=== PATIENT | male | born 1975 | race Caucasian/White ===

== ENCOUNTER 2020-01-17 09:57 | Outpatient (CLI) | payer OTHER, SELFPAY ==
--- NOTE | ~2020-01-17 | US_ITS ---
EXAMINATION: US venous doppler LE RT DATE: 01/17/2020 10:31 INDICATION: Right lower limb pain. TECHNIQUE: Grayscale ultrasound images without and with compression and Doppler ultrasound images of the right lower extremity veins were obtained. COMPARISON: None. FINDINGS: The visualized portions of right common femoral vein, profunda (deep) femoral vein, femoral vein, pop liteal vein, peroneal veins, posterior tibial veins, and greater saphenous vein outflow are patent. IMPRESSION: 1. No deep venous thrombosis. Reviewed, dictated and finalized at location A.
== END 2020-01-17 09:58 | disposition home or self-care (01) ==
LOC: ANHIMG 09:58
PROVIDERS: PCP Family Medicine; Visit Provider Family Medicine
DX: M79.661 Pain in right lower leg (principal)
CPT/HCPCS: 93971

== ENCOUNTER 2022-08-10 14:31 | Inpatient (IN) | payer OTHER, SELFPAY ==
[2022-08-10] VITALS (10 sets, daily range): BP systolic 136–142; BP diastolic 78–100; PULSE 84–125; RESP 18–24; TEMP 36.5–36.8; O2SAT 99–100; BMI 34.2
--- NOTE | ~2022-08-10 | XR_ITS ---
Clinical Indication: Shortness of breath PA and lateral views of the chest: Comparison: 12/27/2017 Findings: The lungs are clear, without evidence of focal consolidation or pleural effusion. Cardiome diastinal silhouette is within normal limits. Bones and soft tissues are unremarkable. Impression: Normal chest. Reviewed, dictated and finalized at [facility]. Impression: Normal chest.
--- NOTE | 2022-08-10 14:46 | ECG_ITS ---
Measurements Intervals [place] Rate: 115 P: 66 MI: 142 QRS: 31 QRSD: 102 T: 40 QT: 323 QTc: 448 Interpretive Statements SINUS TACHYCARDIA DELAYED PRECORDIAL R/S TRANSITION BASELINE WANDER- V1 ABNORMAL ECG NO PREVIOUS ECG AVAILABLE FOR COMPARISON Electronically Signed On 08-10-2022 20:20:22 CDT by Darrel Salguero D.O.
[2022-08-10 15:12] LABS: Basophils Absolute Auto 0.1 K/mm3 (0.0-0.1); Basophils Percent Auto 0.5 % (0.2-1.2); Hematocrit 47.6 % (42.0-52.0); Hemoglobin 16.9 g/dL (14.0-18.0); Immature Granulocyte Absolute 0.05 K/mm3 (0.00-0.031); Immature Granulocyte Percent A 0.5 % (0-0.5); Lymphocytes Percent Auto 7.9 % (18.3-44.2); Mean Corpuscular HGB Conc 35.5 g/dl (32-36); Mean Corpuscular Hemoglobin 30.1 pg (26-34); Mean Corpuscular Volume 84.7 fl (80-100); Mean Platelet Volume 10.2 fl (7.4-10.4); Monocytes Absolute Auto 1.1 K/mm3 (0.1-0.6); Monocytes Percent Auto 10.5 % (2.6-8.5); Neutrophils Absolute Auto 8.1 K/mm3 (1.3-6.7); Neutrophils Percent Auto 80.6 % (45.5-73.1); Platelet Count Result 300 k/mm3 (150-375); Red Blood Count 5.62 M/mm3 (4.6-6.20); Red Cell Distribution Width 12.9 % (11.5-14.5); White Blood Count 10.1 K/mm3 (4.5-10.0)
[2022-08-10 15:24] LABS: Alanine Aminotransferase 35 U/L (6-50); Albumin Level 4.7 g/dL (3.5-5.1); Alkaline Phosphatase 134 U/L (38-126); Aspartate Amino Transferase 19 U/L (17-59); Bilirubin,Total 0.9 mg/dL (0.2-1.3); Blood Urea Nitrogen 20 mg/dL (9-20); Calcium 9.9 mg/dL (8.4-10.2); Carbon Dioxide < 5 mmol/L (22-30); Chloride 102 mmol/L (98-107); Estimated CRCL calculation 93 ml/min; Estimated Glomerular Filt Rate > 60; Glucose 460 mg/dL (65-110); Potassium 4.2 mmol/L (3.4-5.0); Sodium 131 mmol/L (137-145)
[2022-08-10 15:48] LABS: Influenza A QL RT-PCR Negative (Negative); Influenza B QL RT-PCR Negative (Negative); SARS-CoV-2 RNA PCR Negative
--- NOTE | 2022-08-10 15:58 | ED.GENADULT ---
HPI - General Adult General Chief complaint: Unspecified Stated complaint: SOB, n/v, illness Time Seen by Provider: 08/10/22 15:42 Source: RN notes reviewed History of Present Illness HPI narrative: Patient presents emergency department from home for not feeling well. Patient states he has not been feeling well for approximately the past 4 to 5 days. States has been having nausea and vomiting for that time and is unable to keep anything down. States has been associated with symptoms of an upper respiratory infection with a cough this been nonproductive as well as rhinorrhea and a mild sore throat. Patient denies having any fevers or chills he denies any chest pain shortness of breath or abdominal pain. States that he does have an abscess down in his left thigh that has been present for the past 3 days he states he tried popping it yesterday with a needle with some purulent drainage but states it is still present and tender states that he does not have a history of diabetes Related Data Home Medications Medication Instructions Recorded Confirmed vitamin B complex (B 1 tablet PO DAILY 01/17/20 12/17/20 Complex-Vitamin B12 tablet) Allergies Allergy/AdvReac Type Severity Reaction Status Date / Time No Known Allergies Allergy Unknown Verified 08/10/22 14:32 Review of Systems Review of Systems: Gen.: Denies fevers or chills ENT: reports nasal congestion Respiratory: Denies shortness of breath or cough CV: Denies chest pain or palpitations GI: Denies abdominal pain or diarrhea. Reports nausea and vomiting denies burning, urgency, frequency or hematuria Musculoskeletal: Denies back pain or muscle pain Neuro: reports generalized weakness Skin: Reports abscess Except as documented, all other systems reviewed and negative [facility] Past Medical History Medical History Bilateral knee pain Carpal tunnel syndrome of left wrist Dyslipidemia Effusion, right knee Essential (primary) hypertension Hypertension Insomnia Knee effusion, right Left knee DJD Left shoulder pain Right knee DJD Rotator cuff tear Unspecified osteoarthritis, unspecified site Vertigo Surgical History Surgical History History of arthroplasty of left knee History of hand surgery index finger FB removal History of lateral meniscus repair of left knee (~2015) History of shoulder surgery (~2005) right Family History Family History Mother No family history of diabetes mellitus Other Diabetes mellitus Family history of pancreatic cancer Hypertension Social History Social History (Updated 08/10/22 @ 19:31 by Dafne Edwards NP) Social History: one son Smoking status: Never smoker Second hand tobacco smoke exposure: No Alcohol intake: current Alcohol use details: consumes 4 beers consumed social Substance use: never Substance use type: does not use Gender identity (if verbalized by the patient): Male Exam Narrative: APPEARANCE: No acute distress, nontoxic, resting in bed EYES: EOMI HEENT: Normocephalic, atraumatic, oral mucosa dry RESPIRATORY: No respiratory distress Clear to auscultation bilaterally with no rhonchi wheezing or rales. CARDIOVASCULAR: Regular rate and rhythm without murmurs rubs or gallops. ABDOMINAL: Soft, nontender, nondistended, no rebound or guarding MUSCULOSKELETAl: Moves all extremities. No clubbing, cyanosis or edema. NEURO: Awake and alert. Following commands, speech normal, no focal deficits SKIN:: Warm, dry. The left inner upper thigh has a's abscess is present with mild drainage from inferior opening there is purulent in nature with fluctuance and surrounding erythema erythema does not extend into the perineum or the scrotum and only stays in the medial thigh PSYCHIATRIC: Normal affect/mood, Course Course Emergency C
[2022-08-10] MEDS: SODIUM CHLORIDE 0.9% IV 1,000 ML 999 ML IV CONT ×3 (16:06→18:43)
[2022-08-10 16:23] LABS: Alveolar/Arterial O2 Gradient 4.2 mmHg; Base Excess ABG -19.8 mEq/l (+/-2.0); Carboxyhemoglobin 1.2 % THb (0-2.0); Fractional Inspired Oxygen 21 %; HCO3 ABG 6.1 mEq/l (22.0-26.0); Methemoglobin ABG 0.5 %THb (0-1.5); Oxygen Content ABG 22.3 %vol (16.0-22.0); Oxygen Saturation ABG 97.8 % (95.0-100.0); Oxyhemoglobin 96.3 % THb (90.0-100.0); PO2 ABG 125.4 mmHg (80.0-100.0); PO2 FiO2 Ratio Arterial Blood 5.97 %; Total Hemoglobin 16.4 g/dL (12.0-18.0)
[2022-08-10] MEDS: CEFEPIME 2 GM/NS 50 ML 2 GM/50 ML BAG IVPB (16:24)
[2022-08-10 16:29] LABS: Device ROOM AIR; Modified Allen's Test Pass; PCO2 ABG 16.8 mmHg (35.0-45.0); Site Drawn RIGHT RADIAL; pH ABG 7.177 (7.350-7.450)
[2022-08-10 17:03] LABS: Lactic Acid Reflex 2.2 mmol/L (0.7-2.0); Magnesium 2.4 mg/dL (1.6-2.3); Phosphorus 4.6 mg/dL (2.5-4.5)
[2022-08-10] MEDS: metroNIDAZOLE 500 MG/ISO 100ML 500 MG/100 ML BAG 100 MG IVPB ×2 (17:11→23:09)
[2022-08-10 17:21] LABS: Appearance Urine Clear (Clear); Bacteria Urine None Seen /hpf; Bilirubin Urine Negative (Negative); Blood Urine 1+ (Negative); Color Urine Yellow (Yellow); Glucose Urine UA 3+ mg/dL (Negative); Hyaline Casts Urine Present /lpf; Ketones Urine 3+ mg/dL (Negative); Leukocyte Esterase Ur Negative LEU/UL (Negative); Need Manual Microscopic Reviewed; Nitrate Urine Negative (Negative); Protein Urine 2+ mg/dL (Negative); RBC Urine 0-2 /hpf (0-2); Specific Grav Ur 1.028 (1.001-1.035); Squamous Epithelial Cell Urine Few /hpf (Few); Urobilinogen Urine 0.2 mg/dL (<2.0); WBC Urine 0-5 /hpf; pH Urine 5.5 (5.0-9.0)
[2022-08-10] MEDS: INSULIN HUMAN REGULAR (*BKC) 100 UNITS in SODIUM CHLORIDE 0.9% IV 99 ML 8 UNITS IV CONT (17:22)
[2022-08-10 17:23] LABS: Add Urine Microscopic? YES
[2022-08-10 18:37] LABS: Glucose Point of Care 353 mg/dl (65-105)
[2022-08-10 18:37] LABS: Glucose Point of Care 406 mg/dl (65-105)
[2022-08-10 18:51] LABS: Anion Gap 18 mmol/L (8-16); Blood Urea Nitrogen 20 mg/dL (9-20); Calcium 8.8 mg/dL (8.4-10.2); Carbon Dioxide 8 mmol/L (22-30); Chloride 108 mmol/L (98-107); Estimated CRCL calculation 93 ml/min; Estimated Glomerular Filt Rate > 60; Glucose 327 mg/dL (65-110); Sodium 134 mmol/L (137-145)
[2022-08-10 18:54] LABS: Hemoglobin A1C 12.1 % (<5.7)
[2022-08-10 19:14] LABS: Beta-Hydroxybutyrate/Acetoacetate 7.57 mmol/L (0.02-0.27)
--- NOTE | 2022-08-10 19:24 | PM.IMHP ---
H&P: HPI History of Present Illness Date/Time: 08/10/22 19:24 Chief Complaint: shortness of breath, nausea vomiting Narrative: the patient came to the emergency room from home due to not feeling well. He has been sick for approximately 4 5 days. The patient has been having nausea vomiting has not been able to keep anything down the patient had upper respiratory infection with cough. Denies any fever chills. The patient stated he has an abscess to the left inner thigh. That is been there for 3 days. He tried popping yesterday with the needle was some purulence a but is swage tender. His no previous history of having diabetes. WBC 10.1. neutrophil 80.6.abg 7.177 CO2 16.8 PO2 125.4. Bicarb 6.1. Sodium 134. blood sugar 353 and 241. lactic 2.2 and now 1.5. patient's beta hydroxybutyrate acetoacetate. influenza a B and COVID negative. The abscess was I&D in the emergency per ED provider. the wound was packed with iodoform and surgery has been consulted. The radioisotope technician has been consulted for the DKA. The patient was placed on an insulin drip. The patient was started on IV fluids he was given 2 L in the emergency room he started on cefepime, Flagyl and vancomycin. The patient is being admitted to inpatient status on the date of service of 08/10/2022 Review of Systems Review of Systems: see HPI All systems reviewed & are unremarkable except as noted in HPI and below Constitutional: Constitutional: Reports as per HPI and Reports no additional constitutional complaints Eyes: Eyes: Reports as per HPI and Reports no additional eye complaints ENT: Reports system reviewed and no additional complaints, except as documented and Reports Normal hearing present Cardiovascular: Cardiovascular: Reports no additional cardiovascular complaints Respiratory: Respiratory: Reports no additional respiratory complaints and Reports no additional respiratory complaints Gastrointestinal: Gastrointestinal: Reports as per HPI and Reports no additional gastrointestinal complaints Musculoskeletal: Musculoskeletal: Reports no additional musculoskeletal complaints Integumentary/Breasts: Skin/Breast: Reports system reviewed and no additional complaints, except as docu and Reports as per HPI Neurologic: Reports system reviewed and no additional complaints, except as documented, Reports as per HPI and Reports Normal hearing present Psychiatric: Psychiatric: Reports no additional psychiatric complaints and Reports as per HPI Endocrine: Endocrine: Reports no additional endocrine complaints Hematologic/Lymphatic: Hematologic/Lymphatic: Reports no additional hematologic/lymphatic complaints Allergic/Immunologic: Allergic/Immunologic: Reports no additional allergic/immunologic complaints [facility] Past Medical History Medical History Bilateral knee pain Carpal tunnel syndrome of left wrist Dyslipidemia Effusion, right knee Essential (primary) hypertension Hypertension Insomnia Knee effusion, right Left knee DJD Left shoulder pain Right knee DJD Rotator cuff tear Unspecified osteoarthritis, unspecified site Vertigo Surgical History Surgical History History of arthroplasty of left knee History of hand surgery index finger FB removal History of lateral meniscus repair of left knee (~2015) History of shoulder surgery (~2005) right Family History Family History Mother Diabetes mellitus Family history of pancreatic cancer Hypertension Father Prostate carcinoma Social History Social History (Updated 08/10/22 @ 23:46 by Dafne Edwards NP) Social History: he lives with hiswife. He had one son . 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 Code status full code Smoking status: Never smoker Second hand tobacco smoke exposure: No
--- NOTE | 2022-08-10 19:43 | PC.NURSE ---
This patient, Jerald Mike, was admitted to Intensive Care Unit-6. Patient/family oriented to hospital policies and general routines including ID bracelet, bed and alarms, visiting hours, pain management, procedures, bathroom and other care routines, personal items, smoking policy, room service/diet, and visiting hours. Information on how to activate the Rapid Response Team has been discussed. Patient/Family are encouraged to report perceived risks to care and to ask questions if they do not understand what they are told or what they should do.
[2022-08-10 19:49] LABS: Reflex Lactic Acid Yes or No Add Lactic
[2022-08-10] MEDS: SODIUM CHLORIDE 0.9% IV 1,000 ML 150 ML IV CONT (20:21)
[2022-08-10] MEDS: FAMOTIDINE 20 MG/2 ML VIAL IV PUSH (20:25)
[2022-08-10 20:39] LABS: Glucose Point of Care 301 mg/dl (65-105)
[2022-08-10] MEDS: traZODone HCL 50 MG TABLET PO (21:19)
[2022-08-10 21:29] LABS: Glucose Point of Care 313 mg/dl (65-105)
[2022-08-10 22:10] LABS: Glucose Point of Care 248 mg/dl (65-105)
[2022-08-10 22:30] LABS: Lactic Acid 1.5 mmol/L (0.7-2.0)
[2022-08-10 22:31] LABS: Anion Gap 14 mmol/L (8-16); Blood Urea Nitrogen 18 mg/dL (9-20); Calcium 8.6 mg/dL (8.4-10.2); Carbon Dioxide 10 mmol/L (22-30); Chloride 110 mmol/L (98-107); Estimated CRCL calculation 127 ml/min; Estimated Glomerular Filt Rate > 60; Glucose 261 mg/dL (65-110); Potassium 3.5 mmol/L (3.4-5.0); Sodium 134 mmol/L (137-145)
[2022-08-10] MEDS: KCL 20 MEQ/D5/0.45% SOD CHL 1,000 ML 150 ML IV CONT (23:09)
[2022-08-10 23:16] LABS: Glucose Point of Care 241 mg/dl (65-105)
[2022-08-11] VITALS (66 sets, daily range): BP systolic 104–132; BP diastolic 69–77; PULSE 74–104; RESP 16–25; TEMP 36.8–37.7; O2SAT 97–100; BMI 35.6
[2022-08-11 00:13] LABS: Glucose Point of Care 184 mg/dl (65-105)
[2022-08-11 01:11] LABS: Glucose Point of Care 188 mg/dl (65-105)
[2022-08-11] MEDS: INSULIN HUMAN REGULAR (*BKC) 100 UNITS in SODIUM CHLORIDE 0.9% IV 99 ML 13.6 UNITS IV CONT (02:20)
[2022-08-11 02:24] LABS: Glucose Point of Care 196 mg/dl (65-105)
[2022-08-11 02:43] LABS: Anion Gap 9 mmol/L (8-16); Blood Urea Nitrogen 16 mg/dL (9-20); Calcium 8.8 mg/dL (8.4-10.2); Carbon Dioxide 13 mmol/L (22-30); Chloride 109 mmol/L (98-107); Estimated CRCL calculation 127 ml/min; Estimated Glomerular Filt Rate > 60; Glucose 186 mg/dL (65-110); Potassium 3.3 mmol/L (3.4-5.0); Sodium 131 mmol/L (137-145)
[2022-08-11 03:13] LABS: Glucose Point of Care 193 mg/dl (65-105)
[2022-08-11 04:22] LABS: Glucose Point of Care 187 mg/dl (65-105)
[2022-08-11] MEDS: CEFEPIME 2 GM/NS 50 ML 2 GM/50 ML BAG IVPB ×2 (05:27→17:03)
[2022-08-11] MEDS: metroNIDAZOLE 500 MG/ISO 100ML 500 MG/100 ML BAG 100 MG IVPB ×3 (06:00→21:31)
[2022-08-11] MEDS: VANCOMYCIN HCL 1,500 MG in SODIUM CHLORIDE 0.9% IV 500 ML 250 MG IVPB ×2 (06:00→18:48)
[2022-08-11 06:15] LABS: Glucose Point of Care 189 mg/dl (65-105)
[2022-08-11 06:15] LABS: Glucose Point of Care 170 mg/dl (65-105)
[2022-08-11 06:52] LABS: Anion Gap 8 mmol/L (8-16); Blood Urea Nitrogen 16 mg/dL (9-20); Calcium 8.8 mg/dL (8.4-10.2); Carbon Dioxide 14 mmol/L (22-30); Chloride 112 mmol/L (98-107); Estimated CRCL calculation 150 ml/min; Estimated Glomerular Filt Rate > 60; Glucose 154 mg/dL (65-110); Sodium 134 mmol/L (137-145)
[2022-08-11] MEDS: KCL 20 MEQ/D5/0.45% SOD CHL 1,000 ML 150 ML IV CONT (06:54)
[2022-08-11 07:00] LABS: Glucose Point of Care 144 mg/dl (65-105)
[2022-08-11] MEDS: VITAMIN B COMPLEX CAPSULE 1 CAP PO (08:15)
[2022-08-11] MEDS: ASCORBIC ACID 125 MG TABLET BY MOUTH (08:15)
[2022-08-11] MEDS: ENOXAPARIN 40 MG/0.4 ML SYRINGE SUB-Q (08:15)
[2022-08-11] MEDS: CHOLECALCIFEROL 400 UNITS TABLET (VIT D) PO (08:15)
--- NOTE | 2022-08-11 08:20 | WPDCNINT ---
Assessment and Plan Assessment and plan (1) DKA (diabetic ketoacidosis): Code(s): E11.10 - Type 2 diabetes mellitus with ketoacidosis without coma Status: Acute Assessment and Plan: Patient presented with and was given iVF bolus and started on infusion Patient was also started on insulin infusion and Q1H glucose monitoring serial labs were performed At this time patient's anion gap has closed but he still on high rate of insulin. His potassium level is low I will hold his insulin drip for few hours, replace potassium and then restart insulin drip Change dextrose IV fluids to half normal saline Advance diet I will administer Lantus Once the insulin requirement is down to a more manageable rate on the insulin infusion, I will transition him to subcutaneous insulin Consult dietitian and music educator (2) Abscess of left thigh: Code(s): L02.416 - Cutaneous abscess of left lower limb Status: Acute Assessment and Plan: Status post I&D in ER Blood culture sent and pending Surgery has been consulted Continue vancomycin cefepime and Flagyl (3) Nausea and vomiting: Code(s): R11.2 - Nausea with vomiting, unspecified Status: Acute Assessment and Plan: Resolved P.r.n. Zofran Advance diet (4) Electrolyte abnormality: Code(s): E87.8 - Other disorders of electrolyte and fluid balance, not elsewhere classified Status: Acute Assessment and Plan: Potassium level is low at 3.0 P.o. and IV replacement ordered Change IV fluids to half-normal saline with potassium Continue monitoring and replacement as needed Asifctmolly lytes (5) Dyslipidemia: Code(s): E78.5 - Hyperlipidemia, unspecified Status: Acute Assessment and Plan: History of dyslipidemia but not any treatment I will check a fasting lipid profile tomorrow morning (6) Essential (primary) hypertension: Code(s): I10 - Essential (primary) hypertension Status: Acute Assessment and Plan: Patient mentions history of hypertension but currently not on treatment Blood pressure in controlled range at this time Monitor closely and treat if needed Plan DVT prophylaxis -Lovenox Stress ulcer prophylaxis -patient is on Pepcid Nutrition -start diabetic diet Code Status - Full Code Total Critical Care Time - 30 minutes Due to a high probability of clinically significant, life threatening deterioration, the patient required my highest level of preparedness to intervene emergently and I personally spent this critical care time directly and personally managing the patient. This critical care time included obtaining a history; examining the patient; pulse oximetry; ordering and review of studies; arranging urgent treatment with development of a management plan; evaluation of patient's response to treatment; frequent reassessment; and discussions with other providers. It was exclusive of separately billable procedures and treating other patients and teaching time. Please see Assessment and Plan section and the rest of the note for further information on patient assessment and treatment Body Shop Mechanic Consult Note Consult date: 08/11/22 Reason for consult: DKA, abscess HPI: Jerald Mike is a 47 year old male with past medical history of hypertension dyslipidemia but not on any medications presented to ER yesterday with chief complaint of nausea and vomiting from last 3-4 days. Patient states that he developed nausea and vomiting approximately 4 days ago and has not been able to keep any food or liquid down. He denies any abdominal pain and no blood in his vomitus. He denies any fever. He states since yesterday he was feeling short of breath on exertion and was heavy breathing. No chest pain. No diarrhea dysuria hematuria hematochezia or melena. He states that he developed this abscess 3 days ago on inside of his thigh. He states that he has had small abscess in the past which spontaneou
[2022-08-11] MEDS: IBUPROFEN 400 MG TABLET 800 MG PO ×2 (08:23→17:07)
[2022-08-11] MEDS: POTASSIUM CHLORIDE 20 MEQ TABLET 40 MEQ PO ×3 (08:24→21:20)
[2022-08-11] MEDS: INSULIN GLARGINE (*BKC) 100 UNITS/ML 30 UNITS SUB-Q ×2 (08:24→20:19)
[2022-08-11 08:30] LABS: Glucose Point of Care 168 mg/dl (65-105)
[2022-08-11] MEDS: KCL 20 MEQ/0.45% NS 1,000 ML 100 ML IV CONT ×2 (09:03→18:50)
[2022-08-11] MEDS: POTASSIUM CHLORIDE INJ 40 MEQ in SODIUM CHLORIDE 0.9% IV 500 ML 130 MEQ IVPB ×2 (09:03→21:31)
[2022-08-11 09:20] LABS: Glucose Point of Care 174 mg/dl (65-105)
[2022-08-11 09:24] LABS: Hematocrit 33.2 % (42.0-52.0); Hemoglobin 11.9 g/dL (14.0-18.0); Mean Corpuscular HGB Conc 35.8 g/dl (32-36); Mean Corpuscular Hemoglobin 30.7 pg (26-34); Mean Corpuscular Volume 85.8 fl (80-100); Platelet Count Result 154 k/mm3 (150-375); Red Blood Count 3.87 M/mm3 (4.6-6.20); White Blood Count 5.5 K/mm3 (4.5-10.0)
[2022-08-11 09:33] LABS: Anion Gap 6 mmol/L (8-16); Blood Urea Nitrogen 15 mg/dL (9-20); Calcium 8.3 mg/dL (8.4-10.2); Carbon Dioxide 15 mmol/L (22-30); Chloride 108 mmol/L (98-107); Estimated CRCL calculation 150 ml/min; Estimated Glomerular Filt Rate > 60; Glucose 186 mg/dL (65-110); Potassium 3.3 mmol/L (3.4-5.0); Sodium 129 mmol/L (137-145)
[2022-08-11 10:07] LABS: Glucose Point of Care 207 mg/dl (65-105)
[2022-08-11 11:23] LABS: Glucose Point of Care 200 mg/dl (65-105)
--- NOTE | 2022-08-11 11:57 | PM.CNGS ---
Assessment and Plan Assessment and plan (1) Abscess of left thigh: Code(s): L02.416 - Cutaneous abscess of left lower limb Status: Acute Assessment and Plan: Left medial upper thigh abscess s/p I&D in the ER. Abscess cultures pending. This appears to be localized to the thigh with no extension to the perineum or scrotum. The opening is small with another small area that is open and draining near the incision. Still with purulent drainage today. Dr. Canada recommended for this area to be opened up further with incision and drainage of the left medial thigh abscess in the OR tomorrow. Description of the procedure, risks, benefits, and recovery/wound care were discussed in detail with the patient. He agrees to proceed. We will make him NPO after midnight and plan to add him onto the surgery schedule tomorrow. (2) DKA (diabetic ketoacidosis): Code(s): E11.10 - Type 2 diabetes mellitus with ketoacidosis without coma Status: Acute Assessment and Plan: New onset diabetes. educator senior clinical and dietitian consulted. Insulin drip/management per Tone Artist Apprentice and primary service. Likely became more uncontrolled due to the skin infection. (3) Electrolyte abnormality: Code(s): E87.8 - Other disorders of electrolyte and fluid balance, not elsewhere classified Status: Acute Assessment and Plan: Close monitoring by Tone Artist Apprentice with replacement as needed, continued lab monitoring. (4) Dyslipidemia: Code(s): E78.5 - Hyperlipidemia, unspecified Status: Acute Plan I have discussed the patient's case and plan of care with Dr. Canada. Thank you for allowing us to see the patient in consultation and we will continue to follow along with you. History of Present Illness Consult details Consult date: 08/11/22 Reason for consult: other (Left upper medial thigh abscess) Requesting physician: Lalito Awan DO Narrative: This is a 47-year-old male with a history of hypertension and dyslipidemia, but is not currently on any home medications as he has not seen a PCP in about 5 years. He presented to the ER yesterday with complaints of SOB, nausea and vomiting x 3-4 days. He has not been able to keep any food or liquids down. He denies fever or chills, but he does endorse having redness, swelling, and pain to his left medial upper thigh progressively worsening for about 1 month. He first noticed a small red bump and recently this has progressively gotten worse. He tried to drain this area with a needle prior to admission as he was having intermittent drainage when he would sit down. He also endorses shortness of breath over the past few days that was significantly worse yesterday, prompting him to come into the ER for evaluation. In the ED, he was found to have diabetic ketoacidosis. He has no known history of diabetes. His glucose was in the 400's. He was tachycardic in the ER with a heart rate of 125, but he was afebrile. His white blood cell count was 10,100 and is down to 5,500 today. He had mild hyponatremia with sodium of 131. Lactic acid 2.2 and down to 1.5 when repeated. On exam, he was found to have a left medial upper thigh abscess and underwent an I&D with local anesthetic by the ED physician. Cultures were sent and this was packed with iodoform packing. He was admitted to the ICU for DKA. Our service was consulted by the ED for the left medial thigh abscess. He is now seen in the ICU. He has remained afebrile. Prior to my evaluation, he was seen by Dr. Canada and his left thigh dressing was changed. He reports having previous small abscesses that have spontaneously drained at home and resolved without any further medical care. Review of Systems Review of Systems: All systems reviewed & are unremarkable except as noted in HPI and below Constitutional: Constitutional: Reports no additional constitutional complaints, Denies chills, Denies fatigue and Denies fever(s) Eyes: Eyes: Reports no additional eye c
[2022-08-11 12:19] LABS: Glucose Point of Care 292 mg/dl (65-105)
[2022-08-11 13:38] LABS: Glucose Point of Care 265 mg/dl (65-105)
[2022-08-11] MEDS: INSULIN HUMAN REGULAR (*BKC) 100 UNITS in SODIUM CHLORIDE 0.9% IV 99 ML 10.1 UNITS IV CONT (14:33)
[2022-08-11 14:44] LABS: Glucose Point of Care 262 mg/dl (65-105)
[2022-08-11 15:21] LABS: Anion Gap 4 mmol/L (8-16); Blood Urea Nitrogen 18 mg/dL (9-20); Calcium 8.2 mg/dL (8.4-10.2); Carbon Dioxide 16 mmol/L (22-30); Chloride 110 mmol/L (98-107); Estimated CRCL calculation 130 ml/min; Estimated Glomerular Filt Rate > 60; Glucose 237 mg/dL (65-110); Potassium 3.7 mmol/L (3.4-5.0); Sodium 130 mmol/L (137-145)
--- NOTE | 2022-08-11 16:05 | PCCCNOTE ---
On 08/11/22, the student, [Lurdes Barajas ], provided care and completed [facility] on this [facility]. I have reviewed the student's documentation and agree with the findings.
[2022-08-11 16:13] LABS: Glucose Point of Care 198 mg/dl (65-105)
--- NOTE | 2022-08-11 16:56 | PM.IMPN ---
Progress Note: A&P Assessment and Plan (1) DKA (diabetic ketoacidosis): Code(s): E11.10 - Type 2 diabetes mellitus with ketoacidosis without coma Status: Acute Assessment and Plan: this is new onset of diabetes. simulation educator dietitian consult was greatly be appreciated ICU DKA protocol. Continue with IV fluids as per protocol as per ABGs patient is very acidotic A1c is 12.1. 08/11/2022 interval history: 47 year male presented with malaise and sick for 4-5 days with a wound in his left inner thigh upon arrival patient blood sugar elevated he was in DKA, patient was with grossly hydrated has started the patient insulin drip and patient remained on the drip patient's blood sugars are elevated, today patient states is feeling little better, patient is seen by surgery service and will need I and D of the wound on his left thigh, will continue to monitor and further recommendation to follow. (2) Abscess of left thigh: Code(s): L02.416 - Cutaneous abscess of left lower limb Status: Acute Assessment and Plan: Patient was I indeed in the emergency room surgery has been consulted cefepime, Flagyl and vancomycin have been ordered as per stewardship for diabetic skin infection tailor antibiotic to cultures and sensitivities (3) Dyslipidemia: Code(s): E78.5 - Hyperlipidemia, unspecified Status: Acute Assessment and Plan: most likely related to his diabetes and obesity Subjective Date/time seen: 08/11/22 16:56 ?shortness of breath, nausea vomiting HPI-Narrative: ?the patient came to the emergency room from home due to not feeling well.? He has been sick for approximately 4 5 days.? The patient has been having nausea vomiting has not been able to keep anything down the patient had upper respiratory infection with cough.? Denies any fever chills.? The patient stated he has an abscess to the left inner thigh.? That is been there for 3 days.? He tried popping yesterday with the needle was some purulence a but is roping tender.? His no previous history of having diabetes.? ? WBC 10.1. neutrophil 80.6.abg 7.177? CO2 16.8? PO2 125.4.? Bicarb 6.1.? Sodium 134.? blood sugar 353 and 241.? lactic 2.2 and now 1.5. patient's? beta? hydroxybutyrate acetoacetate.? influenza a B and COVID negative.? The abscess was? I&D in the emergency per ED provider.? ? the wound was packed with iodoform and surgery has been consulted.? The unhairing machine operator has been consulted for the DKA.? The patient was placed on an insulin drip.? The patient was started on IV fluids he was given 2 L in the emergency room he started on cefepime, Flagyl and vancomycin 08/11/2022 interval history: 47 year male presented with malaise and sick for 4-5 days with a wound in his left inner thigh upon arrival patient blood sugar elevated he was in DKA, patient was with grossly hydrated has started the patient insulin drip and patient remained on the drip patient's blood sugars are elevated, today patient states is feeling little better, patient is seen by surgery service and will need I and D of the wound on his left thigh, will continue to monitor and further recommendation to follow. Review of Systems Review of Systems: All systems reviewed & are unremarkable except as noted in HPI and below (HPI) Exam Narrative: Patient is comfortable, NAD HEENT: eyes are clear and none icteric LUNGS: normal respiratory ABD:distended, Lower extremities: no edema SKIN: nonjaundiced Neuro: grossly intact. Objective Data Vital Signs Vital Signs: Vital Signs - 24 hr 08/10/22 18:44 08/10/22 17:00 08/10/22 19:38 Temperature Pulse Rate 100 98 91 Respiratory Rate 18 18 24 H Blood Pressure 136/90 142/87 H 142/87 H Pulse Oximetry 100 100 100 Oxygen Delivery 08/10/22 20:00 08/10/22 20:00 08/10/22 22:00 Temperature Pulse Rate 84 99 Respiratory Rate Blood Pressure Pulse Oximetry Oxygen Delivery Room Air
[2022-08-11 18:57] LABS: Glucose Point of Care 166 mg/dl (65-105)
[2022-08-11 18:57] LABS: Glucose Point of Care 205 mg/dl (65-105)
[2022-08-11 20:35] LABS: Glucose Point of Care 166 mg/dl (65-105)
[2022-08-11 20:35] LABS: Anion Gap 4 mmol/L (8-16); Blood Urea Nitrogen 16 mg/dL (9-20); Calcium 8.4 mg/dL (8.4-10.2); Carbon Dioxide 17 mmol/L (22-30); Chloride 108 mmol/L (98-107); Estimated CRCL calculation 176 ml/min; Estimated Glomerular Filt Rate > 60; Glucose 151 mg/dL (65-110); Potassium 3.4 mmol/L (3.4-5.0); Sodium 129 mmol/L (137-145)
[2022-08-11] MEDS: KCL 20MEQ/0.9% SOD CHL 1,000 ML 100 ML IV CONT (21:20)
[2022-08-11] MEDS: traZODone HCL 50 MG TABLET PO (21:20)
[2022-08-11 21:30] LABS: Glucose Point of Care 149 mg/dl (65-105)
[2022-08-11 22:34] LABS: Glucose Point of Care 169 mg/dl (65-105)
[2022-08-11 23:26] LABS: Glucose Point of Care 173 mg/dl (65-105)
[2022-08-12] VITALS (64 sets, daily range): BP systolic 106–132; BP diastolic 59–91; PULSE 69–115; RESP 12–28; TEMP 36.1–36.7; O2SAT 96–100
[2022-08-12 00:38] LABS: Glucose Point of Care 147 mg/dl (65-105)
[2022-08-12 01:13] LABS: Glucose Point of Care 151 mg/dl (65-105)
[2022-08-12 02:17] LABS: Glucose Point of Care 147 mg/dl (65-105)
[2022-08-12] MEDS: IBUPROFEN 400 MG TABLET 800 MG PO ×2 (03:17→08:44)
[2022-08-12] MEDS: INSULIN HUMAN REGULAR (*BKC) 100 UNITS in SODIUM CHLORIDE 0.9% IV 99 ML 6.4 UNITS IV CONT (03:18)
[2022-08-12 03:25] LABS: Glucose Point of Care 152 mg/dl (65-105)
[2022-08-12 04:35] LABS: Glucose Point of Care 131 mg/dl (65-105)
[2022-08-12 05:23] LABS: Glucose Point of Care 121 mg/dl (65-105)
[2022-08-12] MEDS: CEFEPIME 2 GM/NS 50 ML 2 GM/50 ML BAG IVPB ×2 (05:50→16:03)
[2022-08-12 05:55] LABS: Hematocrit 31.7 % (42.0-52.0); Hemoglobin 11.3 g/dL (14.0-18.0); Mean Corpuscular HGB Conc 35.6 g/dl (32-36); Mean Corpuscular Hemoglobin 30.1 pg (26-34); Mean Corpuscular Volume 84.5 fl (80-100); Mean Platelet Volume 9.6 fl (7.4-10.4); Platelet Count Result 141 k/mm3 (150-375); Red Blood Count 3.75 M/mm3 (4.6-6.20); Red Cell Distribution Width 12.9 % (11.5-14.5); White Blood Count 3.5 K/mm3 (4.5-10.0)
[2022-08-12 06:05] LABS: Alanine Aminotransferase 24 U/L (6-50); Albumin Level 2.7 g/dL (3.5-5.1); Alkaline Phosphatase 74 U/L (38-126); Anion Gap 1 mmol/L (8-16); Aspartate Amino Transferase 21 U/L (17-59); Bilirubin,Total 0.5 mg/dL (0.2-1.3); Blood Urea Nitrogen 11 mg/dL (9-20); Carbon Dioxide 20 mmol/L (22-30); Chloride 112 mmol/L (98-107); Cholesterol 199 mg/dL (0-200); Estimated CRCL calculation 215 ml/min; Estimated Glomerular Filt Rate > 60; Glucose 122 mg/dL (65-110); HDL Direct 30 mg/dL; Magnesium 1.9 mg/dL (1.6-2.3); Potassium 3.3 mmol/L (3.4-5.0); Sodium 133 mmol/L (137-145); Triglycerides 264 mg/dL (<150)
[2022-08-12 06:16] LABS: LDL Cholesterol Direct 114 mg/dL
[2022-08-12] MEDS: metroNIDAZOLE 500 MG/ISO 100ML 500 MG/100 ML BAG 100 MG IVPB ×3 (06:33→20:59)
[2022-08-12 06:45] LABS: Glucose Point of Care 118 mg/dl (65-105)
[2022-08-12 06:47] LABS: Vancomycin Trough 9.4 ug/mL (10.0-20.0)
--- NOTE | 2022-08-12 08:15 | WPDINTPN ---
Progress Note: A&P Assessment and Plan (1) DKA (diabetic ketoacidosis): Code(s): E11.10 - Type 2 diabetes mellitus with ketoacidosis without coma Status: Acute Assessment and Plan: Patient presented with and was given iVF bolus and started on infusion Patient was also started on insulin infusion and Q1H glucose monitoring serial labs were performed Over last 24 hours patient's anion gap has closed but he he has continued to require significant amount of insulin and has remained on insulin infusion. I have added Lantus. Patient is NPO and scheduled for surgery today and will continue insulin infusion until he is starts eating p.o. diet. Continue IV fluids Monitor electrolytes and replace needed (2) Abscess of left thigh: Code(s): L02.416 - Cutaneous abscess of left lower limb Status: Acute Assessment and Plan: Status post I&D in ER Blood culture sent and pending Patient is scheduled for surgical debridement today Continue vancomycin cefepime and Flagyl (3) Nausea and vomiting: Code(s): R11.2 - Nausea with vomiting, unspecified Status: Acute Assessment and Plan: Resolved P.r.n. Zofran Tolerating diabetic diet (4) Electrolyte abnormality: Code(s): E87.8 - Other disorders of electrolyte and fluid balance, not elsewhere classified Status: Acute Assessment and Plan: Potassium level is low and have ordered replacement P.o. and IV replacement ordered Repeat BMP ordered prior to surgery (5) Dyslipidemia: Code(s): E78.5 - Hyperlipidemia, unspecified Status: Acute Assessment and Plan: History of dyslipidemia but not any treatment FLP reviewed Will start low-dose statin therapy considering high risk of cerebrovascular disease due to uncontrolled diabetes (6) Essential (primary) hypertension: Code(s): I10 - Essential (primary) hypertension Status: Acute Assessment and Plan: Patient mentions history of hypertension but currently not on treatment Blood pressure in controlled range at this time Monitor closely and treat if needed Plan DVT prophylaxis -Lovenox on hold for surgery Stress ulcer prophylaxis -patient is on Pepcid Nutrition -npo Code Status - Full Code Total Critical Care Time - 30 minutes Due to a high probability of clinically significant, life threatening deterioration, the patient required my highest level of preparedness to intervene emergently and I personally spent this critical care time directly and personally managing the patient. This critical care time included obtaining a history; examining the patient; pulse oximetry; ordering and review of studies; arranging urgent treatment with development of a management plan; evaluation of patient's response to treatment; frequent reassessment; and discussions with other providers. It was exclusive of separately billable procedures and treating other patients and teaching time. Please see Assessment and Plan section and the rest of the note for further information on patient assessment and treatment Subjective Date/time seen: 08/12/22 Overnight events reviewed. Afebrile Continues to be on insulin infusion Denies any new complaints today and states his nausea vomiting has resolved and denies any chest pain or shortness of breath. He does have some achy pain at the site of infection which is better than yesterday still present. He is tolerating p.o. diet without any issues. He denies any fevers chills or shakes. All other systems were reviewed and were negative Good urine output vitals acceptable Review of Systems Review of Systems: All systems reviewed & are unremarkable except as noted in HPI and below (HPI) Exam Narrative: General: Pt is alert awake and in NAD Lungs/Chest: Trachea central Clear BS B/L, No crackles or wheezing. Cardiac: RRR. Normal S1 S2. No murmurs Circulation: Pedal pulses are intact and symmetrical. Abdomen: Normal bowel
[2022-08-12] MEDS: POTASSIUM CHLORIDE INJ 40 MEQ in SODIUM CHLORIDE 0.9% IV 500 ML 130 MEQ IVPB (08:33)
[2022-08-12] MEDS: ASCORBIC ACID 125 MG TABLET BY MOUTH (08:34)
[2022-08-12] MEDS: VITAMIN B COMPLEX CAPSULE 1 CAP PO (08:34)
[2022-08-12] MEDS: CHOLECALCIFEROL 400 UNITS TABLET (VIT D) PO (08:34)
[2022-08-12] MEDS: INSULIN GLARGINE (*BKC) 100 UNITS/ML 30 UNITS SUB-Q ×2 (08:34→20:45)
[2022-08-12] MEDS: POTASSIUM CHLORIDE 20 MEQ TABLET 40 MEQ PO (08:44)
[2022-08-12 08:49] LABS: Glucose Point of Care 120 mg/dl (65-105)
[2022-08-12] MEDS: KCL 20 MEQ/LR 1,000 ML 75 ML IV CONT (10:10)
[2022-08-12 10:16] LABS: Glucose Point of Care 99 mg/dl (65-105)
[2022-08-12] MEDS: CALCIUM CARBONATE (TUMS) 500 MG (200 MG ELEMENTAL) PO (11:24)
[2022-08-12 11:52] LABS: Glucose Point of Care 110 mg/dl (65-105)
[2022-08-12 12:50] LABS: Glucose Point of Care 126 mg/dl (65-105)
--- NOTE | 2022-08-12 13:56 | WPDANESEPPF ---
Anes - Initial Pre Proc Eval Procedure: Operation Date: 08/12/22 14:30 Proposed Procedures p Incision and Debridement Left Thigh Abscess - Moiz Canada MD Date/Time: 08/12/22 13:56 Surgeon: Bobo Remy MD Pre Op Diagnosis: DKA, Left Thigh Abscess Patient Data Age: 47 Gender: M Height: 1.7 m Weight: 101.7 kg Last Vital Signs Temp 36.1 C L 08/12/22 13:10 Pulse 84 08/12/22 13:10 Resp 19 08/12/22 13:10 BP 132/90 08/12/22 13:10 Pulse Ox 99 08/12/22 13:10 O2 Del Method Room Air 08/12/22 13:10 Allergies Allergy/AdvReac Type Severity Reaction Status Date / Time No Known Allergies Allergy Unknown Verified 08/10/22 19:51 Home Medications Medication Instructions Recorded Confirmed Type vitamin B complex (B 1 tablet PO DAILY 01/17/20 08/10/22 History Complex-Vitamin B12 tablet) ascorbic acid (vitamin C) 100 mg 100 mg PO DAILY 08/10/22 08/10/22 History tablet cholecalciferol (vitamin D3) 10 10 mcg PO DAILY 08/10/22 08/10/22 History mcg (400 unit) capsule (Vitamin D3) ibuprofen 800 mg tablet 800 mg PO TID PRN Pain 08/10/22 08/10/22 History trazodone 50 mg tablet 50 mg PO HS 08/10/22 08/10/22 History Laboratory Tests 08/11/22 08/11/22 08/11/22 14:31 14:40 16:09 WBC RBC Hgb Hct MCV MCH MCHC RDW Plt Count MPV Sodium 130 mmol/L L mmol/L (137-145) Potassium 3.7 mmol/L mmol/L (3.4-5.0) Chloride 110 mmol/L H mmol/L (98-107) Carbon Dioxide 16 mmol/L L mmol/L (22-30) Anion Gap 4 mmol/L L mmol/L (8-16) BUN 18 mg/dL mg/dL (9-20) Creatinine 0.70 mg/dL mg/dL (0.7-1.3) Estim Creat Clear Calc 130 ml/min ml/min Estimated GFR > 60 (59 - ) Glucose 237 mg/dL H mg/dL (65-110) POC Capillary Glucose 262 mg/dl H mg/dl 198 mg/dl H mg/dl (65-105) (65-105) Calcium 8.2 mg/dL L mg/dL (8.4-10.2) Magnesium Total Bilirubin AST ALT Alkaline Phosphatase Total Protein Albumin Triglycerides Cholesterol LDL Cholesterol Direct HDL Direct Vancomycin Trough 08/11/22 08/11/22 08/11/22 17:04 18:50 20:17 WBC RBC Hgb Hct MCV MCH MCHC RDW Plt Count MPV Sodium Potassium Chloride Carbon Dioxide Anion Gap BUN Creatinine Estim Creat Clear Calc Estimated GFR Glucose POC Capillary Glucose 166 mg/dl H mg/dl 205 mg/dl H mg/dl 166 mg/dl H mg/dl (65-105) (65-105) (65-105) Calcium Magnesium Total Bilirubin AST ALT Alkaline Phosphatase Total Protein Albumin Triglycerides Cholesterol LDL Cholesterol Direct HDL Direct Vancomycin Trough 08/11/22 08/11/22 08/11/22 20:18 21:27 22:25 WBC RBC Hgb Hct MCV MCH MCHC RDW Plt Count MPV Sodium 129 mmol/L L mmol/L (137-145) Potassium 3.4 mmol/L mmol/L (3.4-5.0) Chloride 108 mmol/L H mmol/L (98-107) Carbon Dioxide 17 mmol/L L mmol/L (22-30) Anion Gap 4 mmol/L L mmol/L (8-16) BUN 16 mg/dL mg/dL (9-20) Creatinine 0.50 mg/dL L mg/dL (0.7-1.3) Estim Creat Clear Calc 176 ml/min ml/min Estimated GFR > 60 (59 - ) Glucose 1
[2022-08-12 14:32] LABS: Glucose Point of Care 162 mg/dl (65-105)
--- NOTE | 2022-08-12 14:39 | WPDHPUPDATE1 ---
History and Physical Update Update Date/Time: 08/12/22 14:39 History and Physical has been reviewed, including an updated exam of the patient. There are NO changes in the patient's condition. Risks, benefits, and alternatives have been discussed and questions answered. Patient agrees to proceed with procedure.
[2022-08-12] MEDS: BUPivacaine HCL 0.5% 10 ML AMP 16 ML INFILTRATE (15:00)
--- NOTE | 2022-08-12 15:10 | P.OP_ITS ---
Procedure Note - Detailed Date of Procedure 08/12/22 Pre-op Diagnosis DKA, Left Thigh Abscess Post-op Diagnosis Same Procedure Performed Complex incision and drainage of left thigh abscess. Surgeon Moiz Canada MD Associate Faculty Dion Hernandez [facility] Anesthesia MAC Indications Patient is a 47-year-old insulin-dependent diabetic who is poorly controlled and sent it for admission to the hospital with DKA. Also had a subcutaneous abscess of the left medial thigh which was initially drained in the emergency room by the emergency room physician. On further follow-up on the floor the abscess was not adequately drained and so he presents now to the operating room for formal operative incision and drainage of the left thigh abscess under a anesthetic. Findings Left medial thigh abscess cavity measuring approximately 4cm in diameter. No ne crotic tissue. Description of Procedure After informed consent was obtained the patient was brought to the operating room where he was placed in supine position with the left leg frog-legged. IV sedation was then given by Anesthesia. We then proceeded to drape the left medial thigh in the usual sterile fashion. A time-out was then performed corre ctly identifying the patient as well as procedure to be performed verifying the site marking. He was already on scheduled IV antibiotics. I then proceeded to inject 0.5% Marcaine with epinephrine around the abscess cavity for local anesthetic effect. I then used a 11 Blade scalpel and made a transverse incision over the most fluctuant portion of the abscess to incorporate the previous site of opening of the abscess in the emergency room. Once this was done a placement dex finger into the abscess cavity broke down a few loculations bluntly. The abscess cavity tracked laterally in the thigh about 3cm and so I decided to make a counter incision with the same scalpel wall lateral to the initial incision. I then irrigated out the abscess cavity the cup was a sterile saline solution. Hemostasis was then achieved utilizing electrocautery. A 1/4 [place] drain was then passed between the initial incision and the counter incision and then the drain was looped and it is sutured to itself with a 2-0 silk suture. I then packed the abscess cavity with quarter-inch iodoform gauze. The area was then cleaned and then 4x4 gauze and ABD pad and Medipore tape was used for final dressing. The patient tolerated the procedure well no complications. All sponges, needles, and instrument counts were correct at the end procedure. EBL was _10__cc. The patient was awakened and taken to recovery in stable and satisfactory condition. Implants None Estimated Blood Loss 10 Urine Output 625 Drains Yes ([place] drain quarter-inch) Packing Yes (Quarter-inch iodoform) Pathology None sent Complications No immediate complications Condition Stable Disposition PACU [facility] Billing Surgery - Charge Forward: Surgery Billing
[2022-08-12] MEDS: LACTATED RINGERS 1,000 ML 30 ML IV CONT (15:13)
[2022-08-12 15:25] LABS: Glucose Point of Care 173 mg/dl (65-105)
[2022-08-12 16:13] LABS: Glucose Point of Care 148 mg/dl (65-105)
--- NOTE | 2022-08-12 16:41 | PM.IMPN ---
Progress Note: A&P Assessment and Plan (1) DKA (diabetic ketoacidosis): Code(s): E11.10 - Type 2 diabetes mellitus with ketoacidosis without coma Status: Acute Assessment and Plan: this is new onset of diabetes. coding educator dietitian consult was greatly be appreciated ICU DKA protocol. Continue with IV fluids as per protocol as per ABGs patient is very acidotic A1c is 12.1. 08/12/2022 interval history: 47 year male presented with malaise and sick for 4-5 days with a wound in his left inner thigh upon arrival patient blood sugar elevated he was in DKA, patient was with grossly hydrated has started the patient insulin drip and patient remained on the drip patient's blood sugars are elevated, today financial operations analyst added lantus, today patient states is feeling little better, patient is seen by surgery service and Scheduled to have I and D of the wound on his left thigh later today, once patient blood sugars are controlled and off insulin drip will transfer patient out of ICU medical floor, will continue to monitor and further recommendation to follow. (2) Abscess of left thigh: Code(s): L02.416 - Cutaneous abscess of left lower limb Status: Acute Assessment and Plan: Patient was I indeed in the emergency room surgery has been consulted cefepime, Flagyl and vancomycin have been ordered as per stewardship for diabetic skin infection tailor antibiotic to cultures and sensitivities (3) Dyslipidemia: Code(s): E78.5 - Hyperlipidemia, unspecified Status: Acute Assessment and Plan: most likely related to his diabetes and obesity Subjective Date/time seen: 08/12/22 16:41 08/12/2022 interval history: 47 year male presented with malaise and sick for 4-5 days with a wound in his left inner thigh upon arrival patient blood sugar elevated he was in DKA, patient was with grossly hydrated has started the patient insulin drip and patient remained on the drip patient's blood sugars are elevated, today financial operations analyst added lantus, today patient states is feeling little better, patient is seen by surgery service and Scheduled to have I and D of the wound on his left thigh later today, once patient blood sugars are controlled and off insulin drip will transfer patient out of ICU medical floor, will continue to monitor and further recommendation to follow. Review of Systems Review of Systems: All systems reviewed & are unremarkable except as noted in HPI and below (HPI) Exam Narrative: Patient is comfortable, NAD HEENT: eyes are clear and none icteric LUNGS: normal respiratory ABD:distended, Lower extremities: no edema SKIN: nonjaundiced Neuro: grossly intact. Objective Data Vital Signs Vital Signs: Vital Signs - 24 hr 08/11/22 16:45 08/11/22 17:00 08/11/22 17:15 Temperature Pulse Rate 78 79 94 Respiratory Rate 21 H 20 23 H Blood Pressure Pulse Oximetry 98 97 Oxygen Delivery Oxygen Flow Rate 08/11/22 17:30 08/11/22 17:45 08/11/22 18:00 Temperature Pulse Rate 84 92 85 Respiratory Rate 18 22 H 19 Blood Pressure Pulse Oximetry 99 Oxygen Delivery Oxygen Flow Rate 08/11/22 18:01 08/11/22 18:15 08/11/22 18:30 Temperature Pulse Rate 90 86 89 Respiratory Rate 20 18 20 Blood Pressure 122/71 Pulse Oximetry 99 99 99 Oxygen Delivery Oxygen Flow Rate 08/11/22 18:45 08/11/22 19:00 08/11/22 19:15 Temperature Pulse Rate 89 88 90 Respiratory Rate 16 16 19 Blood Pressure Pulse Oximetry 99 98 98 Oxygen Delivery Oxygen Flow Rate 08/11/22 18:00 08/11/22 20:00 08/11/22 20:01 Temperature 98.2 F Pulse Rate 87 88 Respiratory Rate 20 Blood Pressure 114/76 Pulse Oximetry 98 Oxygen Delivery Room Air Oxygen Flow Rate 08/11/22 21:39 08/11/22 20:00 08/11/22 22:00 Temperature Pulse Rate 93 85 93 Respiratory Rate 22 H Blood Pressure 110/70 Pulse Oximetry 99 Oxygen Deli
[2022-08-12] MEDS: INSULIN ASPART (*BKC) 100 UNITS/ML SUB-Q (20:44)
[2022-08-12] MEDS: traZODone HCL 50 MG TABLET PO (20:46)
[2022-08-12 20:56] LABS: Glucose Point of Care 230 mg/dl (65-105)
[2022-08-13] VITALS: BP 136/93; PULSE 109; RESP 22; TEMP 36.8; O2SAT 100
[2022-08-13] MEDS: IBUPROFEN 400 MG TABLET 800 MG PO ×3 (00:25→12:36)
[2022-08-13] MEDS: INSULIN ASPART (*BKC) 100 UNITS/ML SUB-Q ×2 (00:30→20:59)
[2022-08-13] MEDS: CEFEPIME 2 GM/NS 50 ML 2 GM/50 ML BAG IVPB (05:12)
[2022-08-13] MEDS: metroNIDAZOLE 500 MG/ISO 100ML 500 MG/100 ML BAG 100 MG IVPB ×2 (05:13→14:49)
[2022-08-13 05:22] LABS: Glucose Point of Care 199 mg/dl (65-105)
[2022-08-13 07:12] LABS: Hematocrit 34.1 % (42.0-52.0); Hemoglobin 12.5 g/dL (14.0-18.0); Immature Platelet Fraction Pct 3.5 % (0.9-11.2); Mean Corpuscular HGB Conc 36.7 g/dl (32-36); Mean Corpuscular Hemoglobin 31.3 pg (26-34); Mean Corpuscular Volume 85.3 fl (80-100); Mean Platelet Volume 9.9 fl (7.4-10.4); Platelet Count Result 149 k/mm3 (150-375); White Blood Count 3.5 K/mm3 (4.5-10.0)
[2022-08-13 07:22] LABS: Alanine Aminotransferase 61 U/L (6-50); Alkaline Phosphatase 74 U/L (38-126); Anion Gap 3 mmol/L (8-16); Aspartate Amino Transferase 64 U/L (17-59); Bilirubin,Total 0.6 mg/dL (0.2-1.3); Blood Urea Nitrogen 9 mg/dL (9-20); Calcium 8.2 mg/dL (8.4-10.2); Carbon Dioxide 25 mmol/L (22-30); Chloride 102 mmol/L (98-107); Estimated CRCL calculation 212 ml/min; Estimated Glomerular Filt Rate > 60; Glucose 196 mg/dL (65-110); Magnesium 1.7 mg/dL (1.6-2.3); Potassium 3.2 mmol/L (3.4-5.0); Sodium 130 mmol/L (137-145)
[2022-08-13 07:29] LABS: Glucose Point of Care 192 mg/dl (65-105)
[2022-08-13 08:00] VITALS: BP 108/69; PULSE 89; RESP 18; TEMP 36.8; O2SAT 98
[2022-08-13 08:00] LABS: Vancomycin Trough 15.2 ug/mL (10.0-20.0)
[2022-08-13] MEDS: INSULIN GLARGINE (*BKC) 100 UNITS/ML 30 UNITS SUB-Q ×2 (08:53→20:58)
[2022-08-13] MEDS: ENOXAPARIN 40 MG/0.4 ML SYRINGE SUB-Q (08:55)
[2022-08-13] MEDS: CHOLECALCIFEROL 400 UNITS TABLET (VIT D) PO (08:56)
[2022-08-13] MEDS: ASCORBIC ACID 125 MG TABLET BY MOUTH (08:56)
[2022-08-13] MEDS: ATORVASTATIN 10 MG TABLET PO (08:56)
[2022-08-13] MEDS: VITAMIN B COMPLEX CAPSULE 1 CAP PO (08:57)
--- NOTE | 2022-08-13 10:14 | P.CDI_ITS ---
CDI Query Clarified Diagnosis Clarified Diagnosis: Please clarify if there is a cause and effect relationship between abscess and Diabetes Mellitus. * Abscess is related to Diabetes Mellitus. * Abscess is not related to Diabetes Mellitus. * Unknown if abscess is related to Diabetes Mellitus. <Maisha Shanks RN - Last Filed: 08/13/22 10:18> Provider Comments Patient with new onset uncontrolled diabetes with hemoglobin A1c of 12 most likely patient has abscess secondary to diabetes mellitus. <Simran Berkowitz MD - Last Filed: 09/01/22 15:46>
[2022-08-13] MEDS: POTASSIUM CHLORIDE 20 MEQ TABLET 40 MEQ PO (11:14)
[2022-08-13 11:15] VITALS: BMI 34.9
--- NOTE | 2022-08-13 11:37 | WPDANESPN ---
Anes - Prog Note Post-Op Date/Time: 08/13/22 11:37 Cardiovascular status: normal Respiratory status: normal Airway patency: baseline Mental status: baseline Post-Op hydration status: normal Vital Signs: Last Vital Signs Temp 36.8 C 08/13/22 08:00 Pulse 89 08/13/22 08:00 Resp 18 08/13/22 08:00 BP 108/69 08/13/22 08:00 Pulse Ox 98 08/13/22 08:00 O2 Del Method Room Air 08/13/22 08:00 O2 Flow Rate 7 08/12/22 15:25 Pain Score (VAS): 0 I/O: Intake & Output 08/12/22 08/13/22 08/13/22 23:59 07:59 15:59 Intake Total 750 1130 400 Balance 750 1130 400 Laboratory Tests 08/13/22 06:58 08/13/22 06:58 08/12/22 08/12/22 08/12/22 11:13 12:16 14:30 WBC RBC Hgb Hct MCV MCH MCHC RDW Plt Count MPV % Immature Plt Fraction Sodium Potassium Chloride Carbon Dioxide Anion Gap BUN Creatinine Estim Creat Clear Calc Estimated GFR Glucose POC Capillary Glucose 110 H 126 H 162 H Calcium Magnesium Total Bilirubin AST ALT Alkaline Phosphatase Total Protein Albumin Vancomycin Trough 08/12/22 08/12/22 08/12/22 15:23 15:59 20:44 WBC RBC Hgb Hct MCV MCH MCHC RDW Plt Count MPV % Immature Plt Fraction Sodium Potassium Chloride Carbon Dioxide Anion Gap BUN Creatinine Estim Creat Clear Calc Estimated GFR Glucose POC Capillary Glucose 173 H 148 H 230 H Calcium Magnesium Total Bilirubin AST ALT Alkaline Phosphatase Total Protein Albumin Vancomycin Trough 08/13/22 08/13/22 08/13/22 05:11 06:58 06:58 WBC 3.5 L RBC 4.00 L Hgb 12.5 L Hct 34.1 L MCV 85.3 MCH 31.3 MCHC 36.7 H RDW 13.0 Plt Count 149 L MPV 9.9 % Immature Plt Fraction 3.5 Sodium 130 L Potassium 3.2 L Chloride 102 Carbon Dioxide 25 Anion Gap 3 L BUN 9 Creatinine 0.40 L Estim Creat Clear Calc 212 Estimated GFR > 60 Glucose 196 H POC Capillary Glucose 199 H Calcium 8.2 L Magnesium 1.7 Total Bilirubin 0.6 AST 64 H ALT 61 H Alkaline Phosphatase 74 Total Protein 6.0 L Albumin 3.0 L Vancomycin Trough 08/13/22 08/13/22 06:58 07:20 WBC RBC Hgb Hct MCV MCH MCHC RDW Plt Count MPV % Immature Plt Fraction Sodium Potassium Chloride Carbon Dioxide Anion Gap BUN Creatinine Estim Creat Clear Calc Estimated GFR Glucose POC Capillary Glucose 192 H Calcium Magnesium Total Bilirubin AST ALT Alkaline Phosphatase Total Protein Albumin Vancomycin Trough 15.2 Microbiology 08/10/22 17:33 Abscess Anaerobic Culture - Preliminary 08/10/22 17:33 Abscess Aerobic Culture - Preliminary Staphylococcus lugdunesis Post-procedural complaints: none Patient Feedback: Patient satisfied with anesthetic care.
[2022-08-13 11:52] LABS: Glucose Point of Care 211 mg/dl (65-105)
[2022-08-13 12:24] LABS: Glucose Point of Care 197 mg/dl (65-105)
--- NOTE | 2022-08-13 15:08 | WPDPN ---
Progress Note: A&P Assessment and Plan (1) Abscess of left thigh: Code(s): L02.416 - Cutaneous abscess of left lower limb Status: Acute Assessment and Plan: Postop day 1 After complex incision and drainage of left medial thigh abscess. He is doing very well and the wound is clean. The packing was changed today at the bedside without difficulty. The [place] drain remains in place. He can be discharged for surgical perspective later today or tomorrow. Would keep him on appropriate oral antibiotic for another 7 days. He can follow up me in the office next week for wound check and removal of the Maya drain. The wound will have to be packed once a day with gauze. The patient himself can do the packing or we can teach family did wound packing. If that is not possible then we will need to set up a home health nurse for daily dressing change. Subjective Date/time seen: 08/13/22 15:08 Interval history: Patient is doing well today. Less pain in the left medial thigh. Packing was changed today and tolerated that well. Wound is clean and has been afebrile. Exam Narrative: Left medial abscess wound widely open with Maya drain through counter incision. No purulent drainage. Existing drainage this serous and blood tinged. No necrotic tissue noted in the wound and skin edges are viable. Decreasing induration and no erythema. Objective Data Vital Signs Vital Signs: Vital Signs - 24 hr 08/12/22 15:13 08/12/22 15:25 08/12/22 16:00 Temperature 36.6 C Pulse Rate 85 74 79 Respiratory Rate 12 12 19 Blood Pressure 106/75 108/75 Pulse Oximetry 100 100 100 Oxygen Delivery Simple Face Mask Simple Face Mask Room Air Oxygen Flow Rate 8 7 08/12/22 15:57 08/12/22 16:00 08/12/22 16:16 Temperature Pulse Rate 82 79 76 Respiratory Rate 13 13 21 H Blood Pressure Pulse Oximetry 98 99 98 Oxygen Delivery Oxygen Flow Rate 08/12/22 16:36 08/12/22 16:56 08/12/22 16:00 Temperature Pulse Rate 79 91 76 Respiratory Rate 19 23 H Blood Pressure Pulse Oximetry 99 Oxygen Delivery Oxygen Flow Rate 08/12/22 18:00 08/12/22 20:00 08/12/22 20:42 Temperature 36.4 C Pulse Rate 72 88 Respiratory Rate 18 Blood Pressure 130/82 Pulse Oximetry 99 99 Oxygen Delivery Room Air Oxygen Flow Rate 08/13/22 00:00 08/13/22 08:00 08/13/22 08:00 Temperature 36.8 C 36.8 C Pulse Rate 109 H 89 Respiratory Rate 22 H 18 Blood Pressure 136/93 H 108/69 Pulse Oximetry 100 98 Oxygen Delivery Room Air Oxygen Flow Rate Intake/Output Intake/Output: Intake & Output 08/10/22 08/11/22 08/12/22 08/13/22 23:59 23:59 23:59 23:59 Intake Total 5430 1900 2030 Output Total 425 1250 Balance 5005 650 2029 Meds/Results Medications: Active Medications Generic Name Dose Route Start Last Admin Trade Name Freq PRN Reason Stop Dose Admin Hydrocodone Bitart/Acetaminophen 1 tab 08/12/22 15:58 Hydrocodone/Acetaminophen (*Crx) 5-325 Mg Tablet PO Q6H PRN Pain Rated 4-6 Al Hydrox/Mg Hydrox/Simethicone 30 ml 08/12/22 11:14 Mag Hydrox/Al Hydrox/Simeth 30 Ml Udc PO Q6H PRN Indigestion - Second Choice Ascorbic Acid 125 mg 08/11/22 09:00 08/13/22 08:56 Ascorbic Acid 125 Mg Tablet BY MOUTH 125 mg DAILY VIKTOR Administration Atorvastatin Calcium 10 mg 08/13/22 09:00 08/13/22 08:56 Atorvastatin 10 Mg Tablet PO 10 mg DAILY VIKTOR Administration Calcium Carbonate 200 mg 08/12/22 11:14 08/12/22 11:24 Calcium Carbonate (Tums) 500 Mg (200 Mg Elemental) PO 200 mg Q6H PRN Administration Indigestion Dextrose 12.5 gm 08/10/22 18:08 Dextrose 50% 25 Gm/50 Ml Syringe IV PUSH PRN PRN Hypoglycemia Protocol Enoxaparin Sodium 40 mg 08/11/22 09:00 08/13/22 08:55 Enoxaparin 40 Mg/0.4 Ml Syringe SUB-Q 40 mg DAILY VIKTOR Administration Glucagon 1 mg 08/10/22 18:08 Glucagon For Inj 1 Mg V
--- NOTE | 2022-08-13 15:59 | PM.IMPN ---
Progress Note: A&P Assessment and Plan (1) DKA (diabetic ketoacidosis): Code(s): E11.10 - Type 2 diabetes mellitus with ketoacidosis without coma Status: Acute Assessment and Plan: this is new onset of diabetes. agricultural extension educator dietitian consult was greatly be appreciated ICU DKA protocol. Continue with IV fluids as per protocol as per ABGs patient is very acidotic A1c is 12.1. 08/13/2022 interval history: 47 year male presented with malaise and sick for 4-5 days with a wound in his left inner thigh upon arrival patient blood sugar was elevated he was in DKA, patient was with vogrously hydrated was started the patient insulin drip and patient remained on the drip patient's blood sugars are elevated, however now patient blood sugars have trended down and patient is off insulin drip, and fixed wing aircraft flight mechanic added lantus, patient blood sugars now close to 200, will CPM, on 08/12 patient was seen by surgery service and had I and D of the wound on his left thigh, wound culture is growing staphylococcus lugdunesis, pending sensitivity will continue Cefepime and vancomycin, will continue to monitor and further recommendation to follow. (2) Abscess of left thigh: Code(s): L02.416 - Cutaneous abscess of left lower limb Status: Acute Assessment and Plan: Patient was I indeed in the emergency room surgery has been consulted cefepime, Flagyl and vancomycin have been ordered as per stewardship for diabetic skin infection tailor antibiotic to cultures and sensitivities (3) Dyslipidemia: Code(s): E78.5 - Hyperlipidemia, unspecified Status: Acute Assessment and Plan: most likely related to his diabetes and obesity Subjective Date/time seen: 08/13/22 15:59 this is new onset of diabetes. agricultural extension educator dietitian consult was greatly be appreciated ICU DKA protocol. Continue with IV fluids as per protocol as per ABGs patient is very acidotic A1c is 12.1. 08/13/2022 interval history: 47 year male presented with malaise and sick for 4-5 days with a wound in his left inner thigh upon arrival patient blood sugar was elevated he was in DKA, patient was with vogrously hydrated was started the patient insulin drip and patient remained on the drip patient's blood sugars are elevated, however now patient blood sugars have trended down and patient is off insulin drip, and fixed wing aircraft flight mechanic added lantus, patient blood sugars now close to 200, will CPM, on 08/12 patient was seen by surgery service and had I and D of the wound on his left thigh, wound culture is growing staphylococcus lugdunesis, pending sensitivity will continue Cefepime and vancomycin, will continue to monitor and further recommendation to follow. Review of Systems Review of Systems: All systems reviewed & are unremarkable except as noted in HPI and below (HPI) Exam Narrative: Patient is comfortable, NAD HEENT: eyes are clear and none icteric LUNGS: normal respiratory ABD:distended, Lower extremities: no edema SKIN: nonjaundiced Neuro: grossly intact. Objective Data Vital Signs Vital Signs: Vital Signs - 24 hr 08/12/22 16:00 08/12/22 16:00 08/12/22 16:16 Temperature Pulse Rate 79 79 76 Respiratory Rate 19 13 21 H Blood Pressure Pulse Oximetry 100 99 98 Oxygen Delivery Room Air 08/12/22 16:36 08/12/22 16:56 08/12/22 16:00 Temperature Pulse Rate 79 91 76 Respiratory Rate 19 23 H Blood Pressure Pulse Oximetry 99 Oxygen Delivery 08/12/22 18:00 08/12/22 20:00 08/12/22 20:42 Temperature 97.6 F Pulse Rate 72 88 Respiratory Rate 18 Blood Pressure 130/82 Pulse Oximetry 99 99 Oxygen Delivery Room Air 08/13/22 00:00 08/13/22 08:00 08/13/22 08:00 Temperature 98.3 F 98.3 F Pulse Rate 109 H 89 Respiratory Rate 22 H 18 Blood Pressure 136/93 H 108/69 Pulse Oximetry 100 98 Oxygen Delivery Room Air Intake/Output Intake/Output: Intake & Out
[2022-08-13 16:00] VITALS: BP 141/91; PULSE 74; RESP 16; TEMP 36.8; O2SAT 99
[2022-08-13 16:41] LABS: Glucose Point of Care 197 mg/dl (65-105)
[2022-08-13] MEDS: HYDROcodone/acetaminophen (*CRX) 5-325 MG TABLET 1 TAB PO (18:43)
[2022-08-13] MEDS: traZODone HCL 50 MG TABLET PO (21:00)
[2022-08-13 21:04] LABS: Glucose Point of Care 232 mg/dl (65-105)
[2022-08-13 22:28] VITALS: O2SAT 99
[2022-08-14] VITALS: BP 159/86; PULSE 79; RESP 15; TEMP 36.8
[2022-08-14 00:24] LABS: Glucose Point of Care 196 mg/dl (65-105)
[2022-08-14] MEDS: HYDROcodone/acetaminophen (*CRX) 5-325 MG TABLET 1 TAB PO ×3 (02:13→22:32)
[2022-08-14 04:38] LABS: Hematocrit 32.7 % (42.0-52.0); Hemoglobin 11.7 g/dL (14.0-18.0); Mean Corpuscular HGB Conc 35.8 g/dl (32-36); Mean Corpuscular Hemoglobin 30.5 pg (26-34); Mean Corpuscular Volume 85.2 fl (80-100); Mean Platelet Volume 9.7 fl (7.4-10.4); Platelet Count Result 126 k/mm3 (150-375); Red Blood Count 3.84 M/mm3 (4.6-6.20); White Blood Count 3.3 K/mm3 (4.5-10.0)
[2022-08-14 04:54] LABS: Alanine Aminotransferase 88 U/L (6-50); Albumin Level 2.8 g/dL (3.5-5.1); Alkaline Phosphatase 66 U/L (38-126); Anion Gap 5 mmol/L (8-16); Aspartate Amino Transferase 78 U/L (17-59); Bilirubin,Total 0.6 mg/dL (0.2-1.3); Blood Urea Nitrogen 7 mg/dL (9-20); Calcium 8.1 mg/dL (8.4-10.2); Carbon Dioxide 28 mmol/L (22-30); Chloride 102 mmol/L (98-107); Estimated CRCL calculation 174 ml/min; Estimated Glomerular Filt Rate > 60; Glucose 171 mg/dL (65-110); Magnesium 1.9 mg/dL (1.6-2.3); Potassium 3.2 mmol/L (3.4-5.0); Sodium 135 mmol/L (137-145)
[2022-08-14 04:54] LABS: Glucose Point of Care 182 mg/dl (65-105)
[2022-08-14 07:56] VITALS: BP 130/81; PULSE 75; RESP 14; TEMP 36.6; O2SAT 98
[2022-08-14] MEDS: CHOLECALCIFEROL 400 UNITS TABLET (VIT D) PO (08:00)
[2022-08-14] MEDS: ATORVASTATIN 10 MG TABLET PO (08:00)
[2022-08-14] MEDS: ENOXAPARIN 40 MG/0.4 ML SYRINGE SUB-Q (08:00)
[2022-08-14] MEDS: ASCORBIC ACID 125 MG TABLET BY MOUTH (08:00)
[2022-08-14] MEDS: VITAMIN B COMPLEX CAPSULE 1 CAP PO (08:00)
[2022-08-14] MEDS: INSULIN GLARGINE (*BKC) 100 UNITS/ML 30 UNITS SUB-Q ×2 (08:01→22:30)
[2022-08-14] MEDS: IBUPROFEN 400 MG TABLET 800 MG PO ×2 (08:12→18:44)
[2022-08-14 09:00] LABS: Glucose Point of Care 172 mg/dl (65-105)
[2022-08-14] MEDS: ONDANSETRON INJ 4 MG/2 ML VIAL IV PUSH (10:07)
[2022-08-14] MEDS: POTASSIUM CHLORIDE 20 MEQ TABLET 40 MEQ PO (10:08)
[2022-08-14] MEDS: INSULIN ASPART (*BKC) 100 UNITS/ML SUB-Q (11:39)
[2022-08-14 11:44] LABS: Glucose Point of Care 232 mg/dl (65-105)
[2022-08-14] MEDS: CALCIUM CARBONATE (TUMS) 500 MG (200 MG ELEMENTAL) PO (13:08)
[2022-08-14] MEDS: METOCLOPRAMIDE HCL INJ 10 MG/2 ML VIAL IV PUSH (13:08)
--- NOTE | 2022-08-14 15:28 | PM.IMPN ---
Progress Note: A&P Assessment and Plan (1) DKA (diabetic ketoacidosis): Code(s): E11.10 - Type 2 diabetes mellitus with ketoacidosis without coma Status: Acute Assessment and Plan: this is new onset of diabetes. tariff inspector dietitian consult was greatly be appreciated ICU DKA protocol. Continue with IV fluids as per protocol as per ABGs patient is very acidotic A1c is 12.1. 08/14/2022 interval history: 47 year male presented with malaise and sick for 4-5 days with a wound in his left inner thigh upon arrival patient blood sugar was elevated he was in DKA, patient was with vogrously hydrated was started the patient insulin drip and patient remained on the drip patient's blood sugars were elevated, however now patient blood sugars have trended down and patient is off insulin drip, and loan auditor added lantus, patient blood sugars now close to 200, will CPM, on 08/12 patient was seen by surgery service and had I and D of the wound on his left thigh, wound culture is growing staphylococcus lugdunesis, pansensitive proprionibacterium speciies pending sensitivity will continue Cefepime and vancomycin, will continue to monitor and further recommendation to follow. Today patient complains of nausea suspect patient may have diabetic gastroparesis start the patient on reglan and monitor (2) Abscess of left thigh: Code(s): L02.416 - Cutaneous abscess of left lower limb Status: Acute Assessment and Plan: Patient was I indeed in the emergency room surgery has been consulted cefepime, Flagyl and vancomycin have been ordered as per stewardship for diabetic skin infection tailor antibiotic to cultures and sensitivities (3) Dyslipidemia: Code(s): E78.5 - Hyperlipidemia, unspecified Status: Acute Assessment and Plan: most likely related to his diabetes and obesity Subjective Date/time seen: 08/14/22 15:28 this is new onset of diabetes. tariff inspector dietitian consult was greatly be appreciated ICU DKA protocol. Continue with IV fluids as per protocol as per ABGs patient is very acidotic A1c is 12.1. 08/14/2022 interval history: 47 year male presented with malaise and sick for 4-5 days with a wound in his left inner thigh upon arrival patient blood sugar was elevated he was in DKA, patient was with vogrously hydrated was started the patient insulin drip and patient remained on the drip patient's blood sugars were elevated, however now patient blood sugars have trended down and patient is off insulin drip, and loan auditor added lantus, patient blood sugars now close to 200, will CPM, on 08/12 patient was seen by surgery service and had I and D of the wound on his left thigh, wound culture is growing staphylococcus lugdunesis, pansensitive proprionibacterium speciies pending sensitivity will continue Cefepime and vancomycin, will continue to monitor and further recommendation to follow. Today patient complains of nausea suspect patient may have diabetic gastroparesis start the patient on reglan and monitor Review of Systems Review of Systems: All systems reviewed & are unremarkable except as noted in HPI and below (HPI) Exam Narrative: Patient is comfortable, NAD HEENT: eyes are clear and none icteric LUNGS: normal respiratory ABD:distended, Lower extremities: no edema SKIN: nonjaundiced Neuro: grossly intact. Objective Data Vital Signs Vital Signs: Vital Signs - 24 hr 08/13/22 16:00 08/13/22 20:00 08/14/22 00:00 Temperature 98.2 F 98.3 F Pulse Rate 74 79 Respiratory Rate 16 15 Blood Pressure 141/91 H 159/86 H Pulse Oximetry 99 Oxygen Delivery Room Air 08/13/22 22:28 08/14/22 07:56 08/14/22 08:00 Temperature 97.9 F Pulse Rate 75 Respiratory Rate 14 Blood Pressure 130/81 Pulse Oximetry 99 98 Oxygen Delivery Room Air Room Air Intake/Output Intake/Output: Intake & Output 08/11/22 08/12/22 08/13/22
[2022-08-14 16:00] VITALS: BP 125/86; PULSE 76; RESP 20; TEMP 36.6; O2SAT 95
[2022-08-14 17:04] LABS: Glucose Point of Care 185 mg/dl (65-105)
[2022-08-14 20:25] VITALS: BP 145/94; PULSE 81; RESP 16; TEMP 36.8; O2SAT 99
[2022-08-14 22:52] LABS: Glucose Point of Care 210 mg/dl (65-105)
[2022-08-15] MEDS: traZODone HCL 50 MG TABLET PO (00:13)
[2022-08-15 04:55] VITALS: BP 144/85; PULSE 72; RESP 16; TEMP 36.9; O2SAT 98
[2022-08-15 05:14] LABS: Hematocrit 33.8 % (42.0-52.0); Hemoglobin 11.9 g/dL (14.0-18.0); Mean Corpuscular HGB Conc 35.2 g/dl (32-36); Mean Corpuscular Hemoglobin 30.5 pg (26-34); Mean Corpuscular Volume 86.7 fl (80-100); Mean Platelet Volume 9.4 fl (7.4-10.4); Platelet Count Result 152 k/mm3 (150-375); Red Cell Distribution Width 12.9 % (11.5-14.5); White Blood Count 3.9 K/mm3 (4.5-10.0)
[2022-08-15 05:26] LABS: Alanine Aminotransferase 122 U/L (6-50); Albumin Level 2.9 g/dL (3.5-5.1); Alkaline Phosphatase 71 U/L (38-126); Anion Gap 0 mmol/L (8-16); Aspartate Amino Transferase 91 U/L (17-59); Bilirubin,Total 0.5 mg/dL (0.2-1.3); Blood Urea Nitrogen 6 mg/dL (9-20); Calcium 8.3 mg/dL (8.4-10.2); Carbon Dioxide 34 mmol/L (22-30); Chloride 102 mmol/L (98-107); Estimated CRCL calculation 219 ml/min; Estimated Glomerular Filt Rate > 60; Glucose 149 mg/dL (65-110); Magnesium 1.9 mg/dL (1.6-2.3); Sodium 136 mmol/L (137-145)
[2022-08-15] MEDS: VITAMIN B COMPLEX CAPSULE 1 CAP PO (07:50)
[2022-08-15] MEDS: CHOLECALCIFEROL 400 UNITS TABLET (VIT D) PO (07:51)
[2022-08-15] MEDS: ATORVASTATIN 10 MG TABLET PO (07:51)
[2022-08-15] MEDS: ASCORBIC ACID 125 MG TABLET BY MOUTH (07:51)
[2022-08-15] MEDS: INSULIN GLARGINE (*BKC) 100 UNITS/ML 30 UNITS SUB-Q (07:55)
[2022-08-15 07:59] VITALS: BP 127/79; PULSE 86; RESP 18; TEMP 36.5; O2SAT 96
[2022-08-15 08:14] LABS: Glucose Point of Care 128 mg/dl (65-105)
[2022-08-15] MEDS: HYDROcodone/acetaminophen (*CRX) 5-325 MG TABLET 1 TAB PO (08:48)
[2022-08-15] MEDS: POTASSIUM CHLORIDE 20 MEQ PACKET (FOR LIQUID) 40 MEQ PO (10:45)
--- NOTE | 2022-08-15 11:23 | PM.DS ---
DS: Admitting Diagnosis Discharge Date 08/15/2022 Admitting Diagnosis shortness of breath, nausea vomiting DS: Discharge Diagnosis Discharge Diagnosis (1) DKA (diabetic ketoacidosis): Code(s): E11.10 - Type 2 diabetes mellitus with ketoacidosis without coma Status: Acute Assessment and Plan: this is new onset of diabetes. nurses educator dietitian consult was greatly be appreciated ICU DKA protocol. Continue with IV fluids as per protocol as per ABGs patient is very acidotic A1c is 12.1. 08/14/2022 interval history: 47 year male presented with malaise and sick for 4-5 days with a wound in his left inner thigh upon arrival patient blood sugar was elevated he was in DKA, patient was with vogrously hydrated was started the patient insulin drip and patient remained on the drip patient's blood sugars were elevated, however now patient blood sugars have trended down and patient is off insulin drip, and employee communications specialist added lantus, patient blood sugars now close to 200, will CPM, on 08/12 patient was seen by surgery service and had I and D of the wound on his left thigh, wound culture is growing staphylococcus lugdunesis, pansensitive proprionibacterium speciies pending sensitivity will continue Cefepime and vancomycin, will continue to monitor and further recommendation to follow. Today patient complains of nausea suspect patient may have diabetic gastroparesis start the patient on reglan and monitor (2) Abscess of left thigh: Code(s): L02.416 - Cutaneous abscess of left lower limb Status: Acute Assessment and Plan: Patient was I indeed in the emergency room surgery has been consulted cefepime, Flagyl and vancomycin have been ordered as per stewardship for diabetic skin infection tailor antibiotic to cultures and sensitivities (3) Dyslipidemia: Code(s): E78.5 - Hyperlipidemia, unspecified Status: Acute Assessment and Plan: most likely related to his diabetes and obesity DS: Summary Hospital Course Reason for hospitalization: shortness of breath, nausea vomiting Narrative: ?the patient came to the emergency room from home due to not feeling well.? He has been sick for approximately 4 5 days.? The patient has been having nausea vomiting has not been able to keep anything down the patient had upper respiratory infection with cough.? Denies any fever chills.? The patient stated he has an abscess to the left inner thigh.? That is been there for 3 days.? He tried popping yesterday with the needle was some purulence a but is still operator brandy.? His no previous history of having diabetes.? ? WBC 10.1. neutrophil 80.6.abg 7.177? CO2 16.8? PO2 125.4.? Bicarb 6.1.? Sodium 134.? blood sugar 353 and 241.? lactic 2.2 and now 1.5. patient's? beta? hydroxybutyrate acetoacetate.? influenza a B and COVID negative.? The abscess was? I&D in the emergency per ED provider.? ? the wound was packed with iodoform and surgery has been consulted.? The employee communications specialist has been consulted for the DKA.? The patient was placed on an insulin drip.? The patient was started on IV fluids he was given 2 L in the emergency room he started on cefepime, Flagyl and vancomycin Hospital Course: 47 year male presented with malaise? and sick for 4-5 days with a wound in his left inner thigh upon arrival patient blood sugar was elevated he was in DKA, patient was with vogrously hydrated was? started the patient insulin drip and patient remained on the drip patient's blood sugars were elevated, however now patient blood sugars have trended down and patient is off insulin drip, and? employee communications specialist added lantus, patient blood sugars now close to 200, will CPM, on 08/12? patient was seen by surgery service and had ? I and D of the wound on his left thigh, wound culture is growing staphylococcus lugdunesis, pansensitive? proprionibacterium speciies pending sensitivity will continue Cefepime and vancomycin, will continue to monitor and further shellie
[2022-08-15 11:39] LABS: Glucose Point of Care 159 mg/dl (65-105)
--- NOTE | 2022-08-15 11:44 | WPDPN ---
Progress Note: A&P Assessment and Plan (1) Abscess of left thigh: Code(s): L02.416 - Cutaneous abscess of left lower limb Status: Acute Assessment and Plan: The left thigh abscess has been drained and the infection is resolving. He can be discharged home with local the wound packing dressing changes. [place] drain will stay in place for the next week and will I will see him back in the office next week to remove the Maya drain and for wound check. He should stay on oral antibiotics for another week. Have the patient call [phone] for an appointment to see me next week. Subjective Date/time seen: 08/15/22 11:44 Interval history: Patient is doing well. Left medial thigh abscess cavity as well drained and he has minimal pain now. He is to be discharged from the hospital later today. Exam Narrative: Left thigh abscess cavity is packed with iodoform gauze. Maya drain is in place. There is resolving induration and no erythema. Abscess cavity shows no purulent drainage and there is granulation tissue noted. Objective Data Vital Signs Vital Signs: Vital Signs - 24 hr 08/14/22 16:00 08/14/22 20:25 08/14/22 20:00 Temperature 36.6 C 36.8 C Pulse Rate 76 81 Respiratory Rate 20 16 Blood Pressure 125/86 145/94 H Pulse Oximetry 95 99 Oxygen Delivery Room Air 08/15/22 04:55 08/15/22 07:59 Temperature 36.9 C 36.5 C Pulse Rate 72 86 Respiratory Rate 16 18 Blood Pressure 144/85 H 127/79 Pulse Oximetry 98 96 Oxygen Delivery Intake/Output Intake/Output: Intake & Output 08/12/22 08/13/22 08/14/22 08/15/22 23:59 23:59 23:59 23:59 Intake Total 1900 2930 2400 1240 Output Total 1250 425 Balance 650 2505 2400 1240 Meds/Results Medications: Active Medications Generic Name Dose Route Start Last Admin Trade Name Freq PRN Reason Stop Dose Admin Hydrocodone Bitart/Acetaminophen 1 tab 08/12/22 15:58 08/15/22 08:48 Hydrocodone/Acetaminophen (*Crx) 5-325 Mg Tablet PO 1 tab Q6H PRN Administration Pain Rated 4-6 Al Hydrox/Mg Hydrox/Simethicone 30 ml 08/12/22 11:14 Mag Hydrox/Al Hydrox/Simeth 30 Ml Udc PO Q6H PRN Indigestion - Second Choice Ascorbic Acid 125 mg 08/11/22 09:00 08/15/22 07:51 Ascorbic Acid 125 Mg Tablet BY MOUTH 125 mg DAILY VIKTOR Administration Atorvastatin Calcium 10 mg 08/13/22 09:00 08/15/22 07:51 Atorvastatin 10 Mg Tablet PO 10 mg DAILY VIKTOR Administration Calcium Carbonate 200 mg 08/12/22 11:14 08/14/22 13:08 Calcium Carbonate (Tums) 500 Mg (200 Mg Elemental) PO 200 mg Q6H PRN Administration Indigestion Dextrose 12.5 gm 08/10/22 18:08 Dextrose 50% 25 Gm/50 Ml Syringe IV PUSH PRN PRN Hypoglycemia Protocol Enoxaparin Sodium 40 mg 08/11/22 09:00 08/15/22 07:52 Enoxaparin 40 Mg/0.4 Ml Syringe SUB-Q Not Given DAILY VIKTOR Glucagon 1 mg 08/10/22 18:08 Glucagon For Inj 1 Mg Vial IM PRN PRN Hypoglycemia Protocol Glucose 15 gm 08/10/22 18:08 Glucose Oral Gel 15 Gm Of Glucse In 37.5 Gm Tube PO PRN PRN Hypoglycemia Protocol Dextrose 1,000 mls @ 100 mls/hr 08/10/22 18:08 Dextrose 5% 1,000 Ml IVPB PRN PRN Hypoglycemia Protocol Vancomycin HCl 1,750 mg/ 500 mls @ 250 mls/hr 08/12/22 08:00 08/15/22 10:33 Sodium Chloride IVPB Infused Q8H VIKTOR Infusion Ibuprofen 800 mg 08/10/22 23:38 08/14/22 18:44 Ibuprofen 400 Mg Tablet PO 800 mg TID PRN Administration MILD Pain Insulin Aspart 4 - 8 units 08/15/22 08:00 08/15/22 07:49 Insulin Aspart (*Bkc) 100 Units/Ml SUB-Q Not Given ACINSULIN [facility] Protocol Insulin Glargine 30 units 08/12/22 09:00 08/15/22 07:55 Insulin Glargine (*Bkc) 100 Units/Ml SUB-Q 30 units Q12H VIKTOR Administration Metoclopramide HCl 10 mg 08/14/22 12:56 08/14/22 13:08 Metoclopramide Hcl Inj 10 Mg/2 Ml Vial IV PUSH 10 mg Q8HR PRN Adminis
== END 2022-08-15 12:14 | disposition home or self-care (01) | DRG 639 ==
LOC: ANHED 15:50 → ANHICU 18:32
PROVIDERS: Emergency Medicine; Internal Medicine; Surgery; Admitting Provider Internal Medicine; Emergency Provider Emergency Medicine; PCP Family Medicine; Visit Provider Family Medicine
PROC: 0H9JXZZ Drainage of Left Upper Leg Skin, External Approach (ICD-10-PCS; principal; 2022-08-12 14:30)
DX: E11.628 Type 2 diabetes mellitus with other skin complications (principal); B95.7 Other staphylococcus as the cause of diseases classified elsewhere; E11.10 Type 2 diabetes mellitus with ketoacidosis without coma; E11.65 Type 2 diabetes mellitus with hyperglycemia; E11.43 Type 2 diabetes mellitus with diabetic autonomic (poly)neuropathy; E87.8 Other disorders of electrolyte and fluid balance, not elsewhere classified; E66.9 Obesity, unspecified; I10 Essential (primary) hypertension; K31.84 Gastroparesis; M17.12 Unilateral primary osteoarthritis, left knee; Z20.822 Contact with and (suspected) exposure to COVID-19; Z28.21 Immunization not carried out because of patient refusal; Z96.652 Presence of left artificial knee joint; Z68.37 Body mass index [BMI] 37.0-37.9, adult
CPT/HCPCS: 10060; 36415; 36600; 71046; 80048; 80053; 80061; 80202; 81001; 82010; 82375; 82805; 82948; 83036; 83050; 83605; 83735; 84100; 85025; 85027; 85055; 87040; 87070; 87075; 87076; 87147; 87181; 87186; 87205; 87636; 93005; 96365; 96367; 99285; A9270; G0378; J0692; J1650; J1815; J2250; J2405; J2704; J2765; J3010; J3370; J3480; J7030; J7040; J7120

== ENCOUNTER 2022-08-18 09:16 | Outpatient (CLI) | payer OTHER, SELFPAY ==
--- NOTE | 2022-08-18 11:00 | NEURO_ITS ---
Impression: # Complains of left pointing finger and thumb numbness. # Subtle evolving Carpal Tunnel Syndrome. # No ulnar neuropathy. # Normal needle/EMG exam. Motor Nerve Conduction Upper Extremities Median Nerve Conduction Velocity (m/sec) Terminal Latency (msec) Response Voltage(mV) Elbow-Wrist Wrist Elbow Wrist Right 57 3.7 3 3 Left 57 3.5 1 2 Ulnar Nerve Conduction Velocity (m/sec) Terminal Latency (msec) Response Voltage(mV) Above Elbow Below Elbow Wrist Above Elbow Below Elbow Wrist Right 55 2.5 5 7 Left 58 2.5 5 7 F-Wave Latency Median (ms) Ulnar (ms) Right 28.1 29.2 Left 28.2 29.3 Sensory Nerve Conduction Upper Extremities Median Nerve Stimulation Terminal Latency (msec) Wrist/Digit Response Voltage (uV) Wrist Right 3.1/2.9 38/45 Left 2.8/2.8 62/66 Ulnar Nerve Stimulation Terminal Latency (msec) Wrist/Digit Response Voltage (uV) Wrist Right 2.3 44 Left 2.3 46 Radial Nerve Terminal Latency (msec) Response Voltage(mV) Right 2.2 9 Left 2.0 13 Left Right Muscles Examined Fibrillation Fasciculation Scarcity Voltage Duration Left Right Left Right Left Right Left Right Left Right Deltoid Biceps X X Brachioradialis Triceps X X Pronator Teres X X Ext Indicis X X Ext Digitorum X X Abd Poll Brev X X 1st Dorsal Interosseus X X Abd Dig Min MTDD
== END 2022-08-18 09:17 | disposition home or self-care (01) ==
PROVIDERS: PCP Family Medicine; Visit Provider Nurse Practitioner Family
DX: R20.0 Anesthesia of skin (principal); G56.00 Carpal tunnel syndrome, unspecified upper limb
CPT/HCPCS: 95886; 95911

== ENCOUNTER 2022-10-07 14:15 | Outpatient (RCR) | payer OTHER, SELFPAY ==
[2022-09-09 08:18] VITALS: BMI 35.4
[2022-10-07 15:22] VITALS: BMI 35.4
[2022-10-07 15:30] VITALS: BMI 35.4
== END 2022-11-24 11:10 | disposition home or self-care (01) ==
LOC: ANHDMC 14:15
PROVIDERS: PCP Family Medicine; Visit Provider Family Medicine
DX: E11.65 Type 2 diabetes mellitus with hyperglycemia (principal); E11.10 Type 2 diabetes mellitus with ketoacidosis without coma; Z71.3 Dietary counseling and surveillance; Z71.89 Other specified counseling
CPT/HCPCS: 97802; 97803; G0108

== ENCOUNTER 2022-12-24 17:00 | Outpatient (RCR) | payer OTHER, SELFPAY | END 2023-03-09 12:45 | disposition home or self-care (01) | LOC: ANHDMC 17:00 | PROVIDERS: PCP Family Medicine; Referring Provider Family Medicine; Visit Provider Family Medicine | DX: E11.65 Type 2 diabetes mellitus with hyperglycemia (principal); Z71.89 Other specified counseling | CPT/HCPCS: G0108 ==

== ENCOUNTER 2023-12-31 07:00 | Outpatient (NON) | payer OTHER, SELFPAY | END 2023-12-31 07:01 | disposition home or self-care (01) | LOC: ANHLAB 01-01 07:12 | PROVIDERS: PCP Family Medicine; Visit Provider Plastic Surgery | DX: M72.0 Palmar fascial fibromatosis [Dupuytren] (principal) | CPT/HCPCS: 88304 ==

== ENCOUNTER 2023-12-31 08:26 | Day surgery (SDC) | payer OTHER, SELFPAY ==
[2023-12-18 14:00] VITALS: BMI 35.3
--- NOTE | 2023-12-30 10:12 | WPDANESEPPF ---
Anes - Initial Pre Proc Eval Procedure: Operation Date: 12/31/23 10:30 Proposed Procedures p Right Middle Finger Fasciectomy - Josh Russ MD Date/Time: 12/30/23 10:12 Surgeon: Josh Russ MD Pre Op Diagnosis: Dupuytren's Contracture Patient Data Age: 48 Gender: M Height: 1.7 m Weight: 102.3 kg Allergies Allergy/AdvReac Type Severity Reaction Status Date / Time No Known Allergies Allergy Unknown Verified 12/31/23 09:07 Home Medications Medication Instructions Recorded Confirmed Type vitamin B complex (B 1 tablet PO DAILY 01/17/20 12/31/23 History Complex-Vitamin B12 tablet) ascorbic acid (vitamin C) 100 mg 100 mg PO DAILY 08/10/22 12/31/23 History tablet cholecalciferol (vitamin D3) 10 10 mcg PO DAILY 08/10/22 12/31/23 History mcg (400 unit) capsule (Vitamin D3) lancets 30 gauge (OneTouch Delica #100 pkgs 09/05/22 12/31/23 Rx Plus Lancet) omega-3 fatty acids 1,000 mg 1,000 mg PO DAILY 11/26/22 12/31/23 History capsule (Super Nenzel-3) pen needle, diabetic 32 gauge x #200 ea 11/27/22 12/31/23 Rx 5/32 (BD Flaquita 2nd Gen Pen Needle) atorvastatin 20 mg tablet 20 mg PO DAILY #90 tabs 09/18/23 12/31/23 Rx lisinopril 5 mg tablet 5 mg PO DAILY #30 tabs 11/26/23 12/31/23 Rx trazodone 50 mg tablet 50 mg PO QHS PRN insomnia #90 tabs 12/06/23 12/31/23 Rx ibuprofen 800 mg tablet See Rx Instructions .Route 12/10/23 12/31/23 Rx .COMPLEX #60 tabs venlafaxine 75 mg capsule,extended 75 mg PO DAILY #90 caps 12/23/23 12/31/23 Rx release 24 hr Patient hx anesthesia problems: none Family hx anesthesia problems: none Results Review: All pre-operative results and documents have been reviewed as part of the pre-operative evaluation. [facility] Past Medical History Medical History Anxiety Bilateral knee pain Carpal tunnel syndrome of left wrist DJD (degenerative joint disease) of knee Dupuytren's contracture Dyslipidemia Effusion, right knee Essential (primary) hypertension EtOH dependence HLD (hyperlipidemia) Hypertension Insomnia Knee effusion, right Left knee DJD Left shoulder pain Obesity Right knee DJD Rotator cuff tear Type 2 diabetes mellitus Unspecified osteoarthritis, unspecified site Vertigo Surgical History Surgical History History of arthroplasty of left knee History of hand surgery index finger FB removal History of incision and drainage Complex I&D of left thigh abscess on 08/12/22. History of lateral meniscus repair of left knee (~2015) History of shoulder surgery (~2005) right Family History Family History Mother Diabetes mellitus Family history of pancreatic cancer Hypertension Father Prostate carcinoma Social History Social History Social History: he lives with hiswife. He had one son . He works for [employer]. 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 Code status full code Smoking status: Never smoker Second hand tobacco smoke exposure: Yes Alcohol intake: current Drinks per week: 15 Alcohol use details: consumes 4 beers consumed social Substance use: current Substance use type: does not use Other substance usage details: edibles Last use: Thursday Lack of Transportation: No Lack of Food: Never True Current Housing: I Have Housing Concerned About Future Housing: No Difficulty Paying Gas/Electric Bills: No Difficulty Paying for Meds: No Currently Unemployed: No Education: Associate Degree Difficulty w/ Childcare or Family Care: No Living arrangements: with family Gender identity (if verbalized by the patient): Male Spiritual care concerns: No Agree to blood products: Yes Anes - Eval Final PreProcedure Day of Procedure 12/30/23 10:12 P
--- NOTE | 2023-12-31 07:00 | WPDHPUPDATE1 ---
History and Physical Update Update Date/Time: 12/31/23 07:00 Patient seen and examined in pre-operative holding area. No interval change in medical history or symptoms. Patient recalls previous discussion of benefits and alternatives to procedure. Continues to desire to proceed with right middle finger fasciectomy. Reviewed procedure, post-op expectations and risks including but not limited to bleeding, infection, injury to tendon/nerve/vessel, decreased hand function, stiffness, RSD, no change or worsening of symptoms, recurrence, incomplete release. I discussed the possible use of assistants and their participation in the case. Patient stated understanding and signed the consent form wishing to proceed.
--- NOTE | 2023-12-31 07:00 | W.PM.PROC2 ---
Procedure Note - Detailed Date of Procedure 12/31/23 Pre-op Diagnosis Dupuytren's Contracture Post-op Diagnosis Same Procedure Performed R MF fasciectomy Surgeon Josh Russ MD Boiler Control Room Operator bora estevez pa-c Anesthesia MAC Description of Procedure INFORMED CONSENT: The patient was seen and examined and marked in the pre-op area.? The patient signed the consent form. PROCEDURE IN DETAIL:The patient taken back to OR on the stretcher in supine position. Time out performed with anesthesia, surgeon and staff agreeing on patient's name site and surgery to be performed SCDs were placed on the lower extremities and inflated. A tourniquet was placed on {right} upper extremity and antibiotics given IV After anesthesia administered sedation I injected {}cc 1%lido and 0.5% marcaine plain in the palm for digital block The?{right upper extremity}?was prepped and draped in sterile fashion the??{right upper extremity} was? exsanguinated with Esmarch bandage and tourniquet inflated to 250mmHg I proceeded with making a rocio incision over the cord to the right middle finger from palm to pipjoint flexion crease through skin and dermis with a 15 blade scalpel. I elevated skin flaps to exposed the fascial cord and circumfertentailly dissected around it. I transected the cord and proceeded with anterograde dissection and excision til I was able to fully extend the MPJ and PIPJ. The neurovascular bundle was identified and protected throughout the procedure. I irrgiated with normal saline and closed with 4-0 chromic A dressing of xeroform, 4x4, shahbaz, and a volar splint was applied for patient safety, security, and comfort and secured with an fannie bandage after the tourniquet was let down noting the hand was warm and well perfused. The patient was then awaken from anesthesia and transferred to the recovery room in stable condition.? Complications - none EBL- 0cc Disposition - home in stable conditions Bora estevez pa-c was essential for positioning, retraction, closure and dressing placement [facility] Billing Surgery - Charge Forward: Surgery Billing ([id number] for bora)
[2023-12-31 09:08] VITALS: BP 133/99; PULSE 89; RESP 16; TEMP 36.8; O2SAT 100
[2023-12-31] MEDS: LACTATED RINGERS 1,000 ML 30 ML IV CONT (09:14)
[2023-12-31] MEDS: ceFAZolin SODIUM 2 GM/20 ML SW SYRINGE IV PUSH (10:14)
[2023-12-31] MEDS: LIDOCAINE HCL 1% LOCAL INJ 20 ML VIAL 5 ML INFILTRATE (10:41)
[2023-12-31] MEDS: BUPivacaine HCL 0.5% 10 ML AMP 5 ML INFILTRATE (10:41)
[2023-12-31] MEDS: BACITRACIN ZINC OINTMENT 0.9 GRAM PACKET 1 PACKET TOPICAL (10:44)
[2023-12-31 10:55] VITALS: BP 113/89; PULSE 89; RESP 15; O2SAT 95
[2023-12-31 11:05] VITALS: BP 125/92; PULSE 79; RESP 20; O2SAT 95
[2023-12-31 11:15] VITALS: BP 126/92; PULSE 78; RESP 20; O2SAT 95
== END 2023-12-31 11:30 | disposition home or self-care (01) ==
PROVIDERS: PCP Family Medicine; Visit Provider Plastic Surgery
PROC: (CPT 26045; principal; 2023-12-31 10:30)
DX: M72.0 Palmar fascial fibromatosis [Dupuytren] (principal)
CPT/HCPCS: 26123

== ENCOUNTER 2024-08-12 09:16 | Outpatient (CLI) | payer OTHER, SELFPAY ==
--- OUTSIDE RECORDS SUMMARY | 2024-08-12 09:47 | XMS_ITS | Clinical Summary ---
Author Organization [facility] Address [address] [place] [id number] Care Team Providers Care Faculty Administrator Name Role Phone Ezekiel Mak MD Primary Care Provider [phone] Social History Tobacco Use Types Packs/Day Years Used Date Smoking Tobacco: Never Assessed Sex and Gender Information Value Date Recorded Sex Assigned at Not on file Legal Sex Male 6:43 PM CDT Gender Identity Not on file Sexual Orientation Not on file Plan of Treatment Health Maintenance Due Date Last Done Comments Colorectal Cancer Screening Colonoscopy (10 Years) 1975 Annual Physical 01/22/1979 Hepatitis C 01/22/1994 DTaP, Tdap and Td Vaccines ( 1 - Tdap) 01/22/1995 Hepatitis B Vaccines (1 of 3 - 19+ 3-dose series) 01/22/1995 COVID-19 Vaccine (2023-2 5 season) 2024 Influenza Adult (#1) 2024 Meningococcal B Vaccine Aged Out No l onger eligible based on patient's age to complete this topic Meningococcal Vaccine Aged Out No jay jay pancho eligible based on patient's age to complete this topic Pneumococcal Vaccine: Pediat rics (0 to 5 Years) and At-Risk Patients (6 to 64 Years) Aged Out No longer eligible b ased on patient's age to complete this topic RSV Immunizations Under 20 Months Aged Out No longer eligible based on patient's age to complete this topic Care Teams Faculty Administrator Relationship Specialty Start Date End Date Ezekiel Mak MD [address] [place] [id number] PCP - General 08/17/15
--- OUTSIDE RECORDS SUMMARY | 2024-08-12 09:47 | XMS_ITS | Clinical Summary ---
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 Gender Identity Not on file Sexual Orientation Not on file Plan of Treatment Health Maintenance Due Date Last Done Comments Hepatitis C Virus (HCV) Screening 1975 Hepatitis B Immunization (1 of 3 - 19+ 3-dose series) 01/22/1995 Colonoscopy 01/22/2021 Colorectal Cancer Screening 01/22/2021 Influenza Immunization (#1) 2024 SARS-COV-2 Immunization ( season) 2024 Respiratory Syncytial Virus (RSV) Immunization (Adult) (1 - 1-dose 75+ series) 01/22/2051 DTaP/Tdap/Td Immunization Discontinued 2015, 06/01/2005 TdaP Immunization Completed 12/04/2015 Meningococcal Immunization (ACWY) Aged Out No longer eligible based on patient's age to complete this topic Pneumococcal Immunization Combined Aged Out No longer eligible based on patient's age to complete this topic Rotavirus Immunization Aged Out No lo nger eligible based on patient's age to complete this topic
[2024-08-12 10:09] LABS: Influenza A QL RT-PCR Positive (Negative); Influenza B QL RT-PCR Negative (Negative); RSV RNA, RT-PCR Negative (Negative); SARS-CoV-2 RNA PCR Negative (Negative)
== END 2024-08-12 09:17 | disposition home or self-care (01) ==
LOC: ANHLAB 09:17
PROVIDERS: PCP Family Medicine; Visit Provider Family Medicine
DX: J06.9 Acute upper respiratory infection, unspecified (principal); Z20.822 Contact with and (suspected) exposure to COVID-19
CPT/HCPCS: 87637